=== PATIENT | male | born 1965 | race African-American/Black ===

== ENCOUNTER → 2017-07-25 | Day surgery (SDC) | payer OTHER ==
[~2017-07-25] MED LIST: LIDOCAINE 1% PF 2 ML VIAL. ID; LIDOCAINE 2% PF Vial for OR 5 ML VIAL.; MIDAZOLAM HCL/PF 2 MG/2 ML VIAL. IV; PROPOFOL 40 ML IV; fentaNYL PF VIAL 100 MCG/2 ML VIAL IV
[2017-07-25] MEDS: IV RINGERS,LACTATED 1000ML 1,000 ML IV (09:48)
== END | disposition home or self-care (01) ==
LOC: SURG 09:10
DX: Z12.11 Encounter for screening for malignant neoplasm of colon (principal); I10 Essential (primary) hypertension; Z83.3 Family history of diabetes mellitus; Z82.3 Family history of stroke; Z82.49 Family history of ischemic heart disease and other diseases of the circulatory system; K57.30 Diverticulosis of large intestine without perforation or abscess without bleeding; K29.51 Unspecified chronic gastritis with bleeding
CPT/HCPCS: 43235; J2704

== ENCOUNTER → 2017-08-22 | Outpatient (CLI) | payer OTHER | END | disposition home or self-care (01) | LOC: US 07:49 | DX: K76.0 Fatty (change of) liver, not elsewhere classified (principal) | CPT/HCPCS: 76705 ==

== ENCOUNTER 2018-04-25 11:48 | Inpatient (IN) | payer OTHER ==
[~2018-04-25] VITALS: Ht 177.8 cm; Wt 108.9 kg
[~2018-04-25 11:48] MED LIST changes: +AMLO5TAB7 PO; -LIDOCAINE 1% PF 2 ML VIAL. ID; -LIDOCAINE 2% PF Vial for OR 5 ML VIAL.; -MIDAZOLAM HCL/PF 2 MG/2 ML VIAL. IV; -PROPOFOL 40 ML IV; -fentaNYL PF VIAL 100 MCG/2 ML VIAL IV
[2018-04-25] MEDS ORDERED: ONDANSETRON PF 4 MG/2 ML VIAL. IV ONE (12:15)
[2018-04-25] MEDS ORDERED: IBUPROFEN 400 MG TABLET. PO ONE (12:15)
[2018-04-25] MEDS ORDERED: IV NORMAL SALINE 1000ML BAG 1,000 ML IV ONE ×2 (12:15→12:45)
[2018-04-25 12:34] LABS: BASO # 0.1 x10^3/uL (0.0-0.2); BASO % 1 % (0-3); EOS % 0 % (0-3); HEMATOCRIT 42.7 % (39.0-53.0); HEMOGLOBIN 14.8 g/dL (13.0-17.5); LYMPH # 0.8 x10^3/uL (1.0-4.8); LYMPH % 11 % (24-48); MEAN CORPUSCULAR HEMOGLOBIN 31 pg (25-35); MEAN CORPUSCULAR HGB CONC 35 g/dL (31-37); MEAN CORPUSCULAR VOLUME 88 fL (79-100); MONO # 0.4 x10^3/uL (0.0-1.1); MONO % 5 % (0-9); NEUT # 6.2 x10^3uL (1.8-7.7); NEUT % 83 % (31-73); PLATELET COUNT 150 x10^3/uL (140-400); RED BLOOD COUNT 4.83 x10^6/uL (4.30-5.70); RED CELL DISTRIBUTION WIDTH 13.6 % (11.5-14.5); WHITE BLOOD COUNT 7.4 x10^3/uL (4.0-11.0)
--- NOTE | 2018-04-25 12:44 | PHYS DOC ---
Past Medical History Past Medical History: Hypertension Past Surgical History: No Surgical History Alcohol Use: None Drug Use: None Adult General Chief Complaint Chief Complaint: WEAKNESS/GENERALIZED HPI HPI Patient is a 53 year old male who presents with cough, body aches, fever, headache, nausea since Friday. Patient states he is not taking any medications today and he rates his pain a 10 out of 10 generalized. Patient denies any diarrhea or vomiting chest pain or shortness of air. Patient states his only history is hypertension of which he didn't take his medication because of his symptoms. Patient's blood pressure is 141/84. 100% on room air, 16 respirations , 101 heart rate, 103.2 fever. Review of Systems Review of Systems Constitutional: fever or chills [] Eyes: Denies change in visual acuity, redness, or eye pain [] HENT: Denies nasal congestion or sore throat [] Respiratory: cough. Denies shortness of breath [] Cardiovascular: No additional information not addressed in HPI [] GI: Denies abdominal pain, nausea, vomiting, bloody stools or diarrhea [] : Denies dysuria or hematuria [] Musculoskeletal: Body aches generalized. Denies back pain or joint pain [] Integument: Denies rash or skin lesions [] Neurologic: headache, denies focal weakness or sensory changes [] All other systems were reviewed and found to be within normal limits, except as documented in this note. Current Medications Current Medications Current Medications Medications (Trade) Dose Ordered Sig/Nilo Start Time Stop Time Status Last Admin Dose Admin Acetaminophen (Tylenol) 650 mg PRN Q4HRS PRN 04/25/18 14:30 04/26/18 14:29 UNV Albuterol/ Ipratropium (Duoneb) 3 ml RTQID 04/25/18 16:00 04/26/18 15:59 UNV Azithromycin 250 ml @ 250 mls/hr 1X ONCE 04/25/18 14:30 04/25/18 15:29 Ceftriaxone Sodium 50 ml @ 100 mls/hr 1X ONCE 04/25/18 14:30 04/25/18 14:59 UNV Ibuprofen (Motrin) 800 mg 1X ONCE 04/25/18 12:15 04/25/18 12:16 DC 04/25/18 12:31 800 MG Ondansetron HCl (Zofran) 4 mg PRN Q8HRS PRN 04/25/18 14:30 04/26/18 14:29 Sodium Chloride 1,000 ml @ 1,000 mls/hr 1X ONCE 04/25/18 12:45 04/25/18 13:44 DC 04/25/18 12:45 1,000 MLS/HR Allergies Allergies Allergies Coded Allergies Type Severity Reaction Last Updated Verified No Known Drug Allergies 07/25/17 No Physical Exam Physical Exam Constitutional: Well developed, well nourished, no acute distress, non-toxic appearance. [] HENT: Normocephalic, atraumatic, bilateral external ears normal, oropharynx moist, no oral exudates, nose normal. [] Eyes: PERRLA, EOMI, conjunctiva normal, no discharge. [] Neck: Normal range of motion, no tenderness, supple, no stridor. [] Cardiovascular:Heart rate regular rhythm, no murmur [] Lungs & Thorax: Bilateral breath sounds clear to auscultation [] Abdomen: Bowel sounds normal, soft, no tenderness, no masses, no pulsatile masses. [] Skin: Warm, dry, no erythema, no rash. [] Back: No tenderness, no CVA tenderness. [] Extremities: No tenderness, no cyanosis, no clubbing, ROM intact, no edema. [] Neurologic: Alert and oriented X 3, normal motor function, normal sensory function, no focal deficits noted. [] Psychologic: Affect normal, judgement normal, mood normal. [] Current Patient Data Vital Signs Vital Signs Date Time Temp Pulse Resp B/P (MAP) Pulse Ox O2 Delivery O2 Flow Rate FiO2 04/25/18 12:08 103.2 101 16 141/84 (103) 100 Room Air 103.2 Lab Values Laboratory Tests Test 04/25/18 12:26 04/25/18 12:34 04/25/18 13:36 White Blood Count 7.4 x10^3/uL (4.0-11.0) Red Blood Count 4.83 x10^6/uL (4.30-5.70) Hemoglobin 14.8 g/dL (13.0-17.5) Hematocrit 42.7 % (39.0-53.0) Mean Corpuscular Volume 88 fL (79-100) Mean Corpuscular Hemoglobin 31 pg (25-35) Mean Corpuscular Hemoglobin Concent 35 g/dL (31-37) Red Cell Distribution Width 13.6 % (11.5-14.5) Platelet Count 150 x10^3/uL (140-400) Neutrophils (%) (Auto) 83 % (31-73) H Lymphocytes (%) (Auto) 11 % (24-48) L Monocytes (%) (Auto) 5 % (0-9) Eosinophils (%) (Auto) 0 % (0-3) Basophils (%) (Auto) 1 % (0-3) Neutrophils # (Auto) 6.2 x10^3uL (1.8-7.7) Lymphocytes # (Auto) 0.8 x10^3/uL (1.0-4.8) L Monocytes # (Auto) 0.4 x10^3/uL (0.0-1.1) Eosinophils # (Auto) 0.0 x10^3/uL (0.0-0.7) Basophils # (Auto) 0.1 x10^3/uL (0.0-0.2) Platelet Estimate Adequate (ADEQUATE) Giant Platelets Present Sodium Level 135 mmol/L (136-145) L Potassium Level 3.6 mmol/L (3.5-5.1) Chloride Level 98 mmol/L (98-107) Carbon Dioxide Level 24 mmol/L (21-32) Anion Gap 13 (6-14) Blood Urea Nitrogen 18 mg/dL (8-26) Creatinine 1.8 mg/dL (0.7-1.3) H Estimated GFR (Cockcroft-Gault) 47.8 Glucose Level 160 mg/dL (70-99) H Calcium Level 9.2 mg/dL (8.5-10.1) Influenza Type A Antigen Negative (NEGATIVE) Influenza Type B Antigen Negative (NEGATIVE) Urine Collection Type Unknown Urine Color Senait Urine Clarity Clear Urine pH 6.0 Urine Specific [place] >=1.030 Urine Protein 100 mg/dL (NEG-TRACE) Urine Glucose (UA) Negative mg/dL (NEG) Urine Ketones (Stick) Trace mg/dL (NEG) Urine Blood Negative (NEG) Urine Nitrite Negative (NEG) Urine Bilirubin Small (NEG) Urine Urobilinogen Dipstick 1.0 mg/dL (0.2 mg/dL) Urine Leukocyte Esterase Negative (NEG) Urine RBC 0 /HPF (0-2) Urine WBC 1-4 /HPF (0-4) Urine Bacteria 0 /HPF (0-FEW) Urine Mucus Mod /LPF Laboratory Tests 04/25/18 12:26 Laboratory Tests 04/25/18 12:26 EKG EKG [] Radiology/Procedures Radiology/Procedures Chest x-ray Impressions: [facility] [address] [place] [address] IMAGING REPORT Signed PATIENT: LISS DUNLAP ACCOUNT: [id number] : 1965 LOCATION: ER AGE: 53 SEX: M EXAM STATUS: REG ER ORD. PHYSICIAN: OSMANY PRESTON APRN REASON: cough, fever PROCEDURE: CHEST PA & LATERAL Chest, PA and Lateral: Technique: PA and lateral views of the chest were obtained. History: Fever, cough, headache. Comparison: None. Findings: The heart size grossly appears unremarkable. Mild bibasilar lung airspace opacities likely atelectasis or infiltrates. Mild degenerative changes identified in the thoracic spine IMPRESSION: Mild bibasilar lung airspace opacities likely atelectasis or infiltrates. Electronically signed by: Turner Guaman MD (04/25/2018 1:02 PM) [facility] DICTATED and SIGNED BY: TURNER GUAMAN MD DATE: 04/25/18 1257 Course & Med Decision Making Course & Med Decision Making Patient is a 53 year old male who presents with cough, body aches, fever, headache, nausea since Friday. Patient states he is not taking any medications today and he rates his pain a 10 out of 10 generalized. Patient denies any diarrhea or vomiting chest pain or shortness of air. Patient states his only history is hypertension of which he didn't take his medication because of his symptoms. Patient's blood pressure is 141/84. 100% on room air, 16 respirations , 101 heart rate, 103.2 fever. Skin is pink warm and dry. Alert and oriented. Abdomen is soft and nontender. Throat is pink without exudates. Bilateral tympanic syrup pearly white. PERRLA. Neurologically intact. Patient is febrile of which she is given ibuprofen. Patient is also given 2 normal saline boluses and some Zofran. Lungs are clear in all lobes. Heart rate regular without murmur. Patient has no swelling in extremities. Chest x-ray shows Mild bibasilar lung airspace opacities likely atelectasis or infiltrates. 1400: Patient's walking desats showed 89% on room air and heart rate jumped up to 115. When patient is just sitting in his room he is only satting at 92% on room air. Patient will be admitted for IV antibiotics. Blood cultures are drawn. I have talked into Dr. Lockwood consult pulmonary. Patient will be treated for Pneumonia with Azithromycin and Rocephin IV. Cultures done. Flu is negative. Blood work unremarkable. Dragon Disclaimer Ryzing Disclaimer This electronic medical record was generated, in whole or in part, using a voice recognition dictation system. Departure Departure Impression: Primary Impression: Community acquired pneumonia Disposition: ADMITTED INPATIENT Admitting Physician: Other Condition: STABLE Referrals: ANGELICA MANUEL MD (PCP) Patient Instructions: Pneumonia, Adult Additional Instructions: Call your doctor on Friday for a follow up appointment. Take medications as prescribed. Begin taking Ibuprofen or Tylenol for pain and fever. Drink plenty of fluids to avoid dehydration. Problem Qualifiers Primary Impression: Community acquired pneumonia Laterality: unspecified laterality Qualified Codes: J18.9 - Pneumonia, unspecified organism OSMANY PRESTON [employer] Apr 25, 2018 12:44
[2018-04-25 12:47] LABS: CALCIUM 9.2 mg/dL (8.5-10.1); CREATININE 1.8 mg/dL (0.7-1.3); GFR 47.8; POTASSIUM 3.6 mmol/L (3.5-5.1)
--- NOTE | 2018-04-25 13:05 | RAD ---
Chest, PA and Lateral: Technique: PA and lateral views of the chest were obtained. History: Fever, cough, headache. Comparison: None. Findings: The heart size grossly appears unremarkable. Mild bibasilar lung airspace opacities likely atelectasis or infiltrates. Mild degenerative changes identified in the thoracic spine IMPRESSION: Mild bibasilar lung airspace opacities likely atelectasis or infiltrates. Electronically signed by: Turner Guaman MD (04/25/2018 1:02 PM) [facility]
[2018-04-25 13:06] LABS: INFLUENZA A PATIENT NEGATIVE (NEGATIVE); INFLUENZA B PATIENT NEGATIVE (NEGATIVE)
[2018-04-25 13:11] LABS: PLT ESTIMATE ADEQUATE (ADEQUATE)
[2018-04-25] MEDS ORDERED: ONDA4TAB12 PO (13:21)
[2018-04-25] MEDS ORDERED: AZIT250T6 PO (13:21)
[2018-04-25] MEDS ORDERED: IBUP-1007 PO (13:21)
[2018-04-25 13:45] LABS: BILIRUBIN,URINE SMALL (NEG); CLARITY,URINE CLEAR; COLOR,URINE AMBER; NITRITE,URINE NEGATIVE (NEG); PROTEIN,URINE 100 mg/dL (NEG-TRACE)
[2018-04-25 14:04] LABS: RBC,URINE 0 /HPF (0-2)
[2018-04-25 14:05] LABS: BACTERIA,URINE 0 /HPF (0-FEW)
[2018-04-25] MEDS ORDERED: ONDANSETRON PF 4 MG/2 ML VIAL. IV PRN (14:30)
[2018-04-25] MEDS ORDERED: AZITHRMYCN 500MG IVPB FOR OMNI 250 ML IV ONE (14:30)
[2018-04-25] MEDS ORDERED: cefTRIAXone IV Push 1 GM VIAL. IVP ONE (14:45)
[2018-04-25] MEDS: IPRATRPIUM/ALBUTEROL 0.5/2.5MG 3 ML NEBU. NEB SCH ×3 (15:52→19:41)
[2018-04-25 19:12] VITALS: BP 172/101
[2018-04-25] MEDS ORDERED: AMLO10TA4 PO (20:06)
--- NOTE | 2018-04-25 21:56 | PDOC1 ---
History and Physical History of Present Illness History of Present Illness HPI in ED Patient is a 53 year old male who presents with cough, body aches, fever, headache, nausea since Friday. Patient states he is not taking any medications today and he rates his pain a 10 out of 10 generalized. Patient denies any diarrhea or vomiting chest pain or shortness of air. Patient states his only history is hypertension of which he didn't take his medication because of his symptoms. Patient's blood pressure is 141/84. 100% on room air, 16 respirations , 101 heart rate, 103.2 fever. On my exam he is in good spirits. NAD Fever has improved + cough requests to leave in am Current Problem List Problem List Problems Medical Problems: (1) Community acquired pneumonia Status: Acute Current Medications Current Medications Current Medications Medications (Trade) Dose Ordered Sig/Nilo Start Time Stop Time Status Last Admin Dose Admin Acetaminophen (Tylenol) 650 mg PRN Q4HRS PRN 04/25/18 14:30 04/26/18 14:29 Albuterol/ Ipratropium (Duoneb) 3 ml RTQID 04/25/18 16:00 04/26/18 15:59 04/25/18 19:41 3 ML Azithromycin 250 ml @ 250 mls/hr 1X ONCE 04/25/18 14:30 04/25/18 15:29 DC 04/25/18 14:41 250 MLS/HR Ceftriaxone Sodium (Rocephin) 1 gm 1X ONCE 04/25/18 14:45 04/25/18 14:46 DC 04/25/18 14:41 1 GM Ibuprofen (Motrin) 800 mg 1X ONCE 04/25/18 12:15 04/25/18 12:16 DC 04/25/18 12:31 800 MG Ondansetron HCl (Zofran) 4 mg PRN Q8HRS PRN 04/25/18 14:30 04/26/18 14:29 Sodium Chloride 1,000 ml @ 1,000 mls/hr 1X ONCE 04/25/18 12:45 04/25/18 13:44 DC 04/25/18 12:45 1,000 MLS/HR Allergies Allergies Allergies Coded Allergies Type Severity Reaction Last Updated Verified No Known Drug Allergies 07/25/17 No ROS Review of System CONSTITUTIONAL: No fever or chills EYES: No recent changes SKIN: No rash or itching CARDIOVASCULAR: No chest pain, syncope, palpitations, or edema RESPIRATORY: No SOB or cough GASTROINTESTINAL: No nausea, vomiting or abdominal pain NEUROLOGICAL: No headaches or weakness ENDOCRINE: No cold or heat intolerance GENITOURINARY: No urgency or frequency of urination MUSCULOSKELETAL: No back pain or joint pain LYMPHATICS: No enlarged lymph nodes PSYCHIATRIC: No anxiety or depression Physical Exam Physical Exam GEN.: No apparent distress. Alert and oriented. HEENT: Head is normocephalic, atraumatic NECK: Supple. LUNGS: Clear to auscultation. HEART: RRR, S1, S2 present. Peripheral pulses intact ABDOMEN: Soft, nontender. Positive bowel sounds. EXTREMITIES: Without any cyanosis. NEUROLOGIC: Normal speech, normal tone PSYCHIATRIC: Normal affect, normal mood. SKIN: No ulcerations Vitals Vitals Vital Signs Date Time Temp Pulse Resp B/P (MAP) Pulse Ox O2 Delivery O2 Flow Rate FiO2 04/25/18 20:00 Room Air 04/25/18 19:42 94 04/25/18 19:12 97.5 94 18 172/101 (124) 97.5 Labs Labs Laboratory Tests Test 04/25/18 12:26 04/25/18 12:34 04/25/18 13:36 White Blood Count 7.4 x10^3/uL (4.0-11.0) Red Blood Count 4.83 x10^6/uL (4.30-5.70) Hemoglobin 14.8 g/dL (13.0-17.5) Hematocrit 42.7 % (39.0-53.0) Mean Corpuscular Volume 88 fL (79-100) Mean Corpuscular Hemoglobin 31 pg (25-35) Mean Corpuscular Hemoglobin Concent 35 g/dL (31-37) Red Cell Distribution Width 13.6 % (11.5-14.5) Platelet Count 150 x10^3/uL (140-400) Neutrophils (%) (Auto) 83 % (31-73) Lymphocytes (%) (Auto) 11 % (24-48) Monocytes (%) (Auto) 5 % (0-9) Eosinophils (%) (Auto) 0 % (0-3) Basophils (%) (Auto) 1 % (0-3) Neutrophils # (Auto) 6.2 x10^3uL (1.8-7.7) Lymphocytes # (Auto) 0.8 x10^3/uL (1.0-4.8) Monocytes # (Auto) 0.4 x10^3/uL (0.0-1.1) Eosinophils # (Auto) 0.0 x10^3/uL (0.0-0.7) Basophils # (Auto) 0.1 x10^3/uL (0.0-0.2) Platelet Estimate Adequate (ADEQUATE) Giant Platelets Present Sodium Level 135 mmol/L (136-145) Potassium Level 3.6 mmol/L (3.5-5.1) Chloride Level 98 mmol/L (98-107) Carbon Dioxide Level 24 mmol/L (21-32) Anion Gap 13 (6-14) Blood Urea Nitrogen 18 mg/dL (8-26) Creatinine 1.8 mg/dL (0.7-1.3) Estimated GFR (Cockcroft-Gault) 47.8 Glucose Level 160 mg/dL (70-99) Calcium Level 9.2 mg/dL (8.5-10.1) Influenza Type A Antigen Negative (NEGATIVE) Influenza Type B Antigen Negative (NEGATIVE) Urine Collection Type Unknown Urine Color Senait Urine Clarity Clear Urine pH 6.0 Urine Specific [place] >=1.030 Urine Protein 100 mg/dL (NEG-TRACE) Urine Glucose (UA) Negative mg/dL (NEG) Urine Ketones (Stick) Trace mg/dL (NEG) Urine Blood Negative (NEG) Urine Nitrite Negative (NEG) Urine Bilirubin Small (NEG) Urine Urobilinogen Dipstick 1.0 mg/dL (0.2 mg/dL) Urine Leukocyte Esterase Negative (NEG) Urine RBC 0 /HPF (0-2) Urine WBC 1-4 /HPF (0-4) Urine Bacteria 0 /HPF (0-FEW) Urine Mucus Mod /LPF Laboratory Tests Test 04/25/18 12:26 04/25/18 12:34 04/25/18 13:36 White Blood Count 7.4 x10^3/uL (4.0-11.0) Red Blood Count 4.83 x10^6/uL (4.30-5.70) Hemoglobin 14.8 g/dL (13.0-17.5) Hematocrit 42.7 % (39.0-53.0) Mean Corpuscular Volume 88 fL (79-100) Mean Corpuscular Hemoglobin 31 pg (25-35) Mean Corpuscular Hemoglobin Concent 35 g/dL (31-37) Red Cell Distribution Width 13.6 % (11.5-14.5) Platelet Count 150 x10^3/uL (140-400) Neutrophils (%) (Auto) 83 % (31-73) Lymphocytes (%) (Auto) 11 % (24-48) Monocytes (%) (Auto) 5 % (0-9) Eosinophils (%) (Auto) 0 % (0-3) Basophils (%) (Auto) 1 % (0-3) Neutrophils # (Auto) 6.2 x10^3uL (1.8-7.7) Lymphocytes # (Auto) 0.8 x10^3/uL (1.0-4.8) Monocytes # (Auto) 0.4 x10^3/uL (0.0-1.1) Eosinophils # (Auto) 0.0 x10^3/uL (0.0-0.7) Basophils # (Auto) 0.1 x10^3/uL (0.0-0.2) Platelet Estimate Adequate (ADEQUATE) Giant Platelets Present Sodium Level 135 mmol/L (136-145) Potassium Level 3.6 mmol/L (3.5-5.1) Chloride Level 98 mmol/L (98-107) Carbon Dioxide Level 24 mmol/L (21-32) Anion Gap 13 (6-14) Blood Urea Nitrogen 18 mg/dL (8-26) Creatinine 1.8 mg/dL (0.7-1.3) Estimated GFR (Cockcroft-Gault) 47.8 Glucose Level 160 mg/dL (70-99) Calcium Level 9.2 mg/dL (8.5-10.1) Influenza Type A Antigen Negative (NEGATIVE) Influenza Type B Antigen Negative (NEGATIVE) Urine Collection Type Unknown Urine Color Senait Urine Clarity Clear Urine pH 6.0 Urine Specific [place] >=1.030 Urine Protein 100 mg/dL (NEG-TRACE) Urine Glucose (UA) Negative mg/dL (NEG) Urine Ketones (Stick) Trace mg/dL (NEG) Urine Blood Negative (NEG) Urine Nitrite Negative (NEG) Urine Bilirubin Small (NEG) Urine Urobilinogen Dipstick 1.0 mg/dL (0.2 mg/dL) Urine Leukocyte Esterase Negative (NEG) Urine RBC 0 /HPF (0-2) Urine WBC 1-4 /HPF (0-4) Urine Bacteria 0 /HPF (0-FEW) Urine Mucus Mod /LPF VTE Prophylaxis Ordered VTE Prophylaxis Devices: No VTE Pharmacological Prophylaxi: No Assessment/Plan Assessment/Plan Ceftriaxone/Azithromycin CT chest DREW SOTO MD Apr 25, 2018 21:56
[2018-04-25 23:24] VITALS: BP 144/98
[2018-04-25] MEDS: ACETAMINOPHEN 325 MG TABLET. PO PRN (23:56)
[2018-04-25] MEDS: IV NORMAL SALINE 1000ML BAG 1,000 ML IV SCH (23:57)
--- NOTE | 2018-04-26 01:57 | RAD ---
INDICATION: cp, soa, pna, no priors COMPARISON: Chest x-ray from one day prior TECHNIQUE: Axial CT images obtained through the chest without contrast. One or more of the following individualized dose reduction techniques were utilized for this examination: 1. Automated exposure control; 2. Adjustment of the mA and/or kV according to patient size; 3. Use of iterative reconstruction technique. FINDINGS: Dense opacity within the right lung right lower lobe with some groundglass component as well. Partially visualized liver appears low attenuation. Nonspecific but can be seen with fatty infiltration. Small pleural effusions. Degenerative changes spine. Small amount of fluid in the anterior mediastinum. Prominent precarinal lymph node measuring up to approximately 13 mm short axis. IMPRESSION: 1. Dense opacity within the right lung. Could be secondary to pneumonia but would obtain a follow-up to ensure resolution to exclude neoplastic causes. There is some prominent mediastinal lymph nodes which could be reactive in nature but can be followed as well. Electronically signed by: Jerel Velarde MD (04/26/2018 1:54 AM) [facility]
--- NOTE | 2018-04-26 02:23 | RAD ---
Indication: Dyspnea cough pneumonia vs PE 31.2mci 133XE Gas 5.5mci 99mTc MAA Technique: Static images are obtained of both lungs following inhalation of 31 mCi of 99 M technetium DTPA and again following IV administration of 5.5 mCi of 99 M technetium MAA. Comparison: CT chest same day Findings: No definite mismatched defects that are worse on the perfusion when compared to the ventilation images. Triple matched defect right lower lung Impression: 1. Triple matched defect in the right lower lung which corresponds with intermediate probability. Electronically signed by: Jerel Velarde MD (04/26/2018 2:19 AM) [facility]
[2018-04-26] MEDS ORDERED: ALBUTEROL SULFATE 2.5 MG/3 ML NEBU. NEB PRN (03:00)
[2018-04-26 03:46] VITALS: BP 145/91
[2018-04-26 05:48] LABS: BASO % 0 % (0-3); EOS % 0 % (0-3); HEMATOCRIT 38.5 % (39.0-53.0); LYMPH # 1.1 x10^3/uL (1.0-4.8); LYMPH % 18 % (24-48); MEAN CORPUSCULAR HEMOGLOBIN 30 pg (25-35); MEAN CORPUSCULAR HGB CONC 34 g/dL (31-37); MEAN CORPUSCULAR VOLUME 89 fL (79-100); MONO # 0.5 x10^3/uL (0.0-1.1); MONO % 8 % (0-9); NEUT # 4.7 x10^3uL (1.8-7.7); NEUT % 74 % (31-73); PLATELET COUNT 142 x10^3/uL (140-400); RED BLOOD COUNT 4.33 x10^6/uL (4.30-5.70); RED CELL DISTRIBUTION WIDTH 13.6 % (11.5-14.5); WHITE BLOOD COUNT 6.3 x10^3/uL (4.0-11.0)
[2018-04-26 05:53] LABS: ALBUMIN 2.6 g/dL (3.4-5.0); ALBUMIN/GLOBULIN RATIO 0.6 (1.0-1.7); CALCIUM 8.7 mg/dL (8.5-10.1); CREATININE 1.6 mg/dL (0.7-1.3); GFR 54.8; POTASSIUM 3.6 mmol/L (3.5-5.1); TOTAL BILIRUBIN 0.4 mg/dL (0.2-1.0); TOTAL PROTEIN 7.3 g/dL (6.4-8.2)
[2018-04-26] MEDS: IBUPROFEN 200 MG TABLET. PO PRN ×2 (06:32→18:28)
[2018-04-26] MEDS: AZITHROMYCIN 500 MG in IV NORMAL SALINE 250ML 250 ML IV SCH (06:32)
[2018-04-26 07:00] VITALS: BP 151/67
[2018-04-26] MEDS: IPRATRPIUM/ALBUTEROL 0.5/2.5MG 3 ML NEBU. NEB SCH ×2 (07:47→11:40)
[2018-04-26] MEDS ORDERED: cefTRIAXone IV Push 1 GM VIAL. IVP ONE (08:00)
--- NOTE | 2018-04-26 08:25 | RAD ---
Examination: Lower Extremity Venous Doppler Ultrasound History: Bilateral leg pain Comparison: None Procedure: Haynes scale, color flow 2D and spectal waveform analysis images are obtained with and without compression in the area of the common femoral vein, superficial femoral vein - femoral vein junction, main femoral vein (superficial femoral vein) and popliteal vein. Veins of the proximal calf are also imaged. Findings: There is normal duplex flow, color flow and compressibility of all visualized vein segments. No evidence of deep venous thrombus is present. Impression: No evidence of DVT in the visualized bilateral lower extremity venous system. Electronically signed by: Turner Guaman MD (04/26/2018 8:21 AM) [facility]
[2018-04-26] MEDS: amLODIPine BESYLATE 10 MG TABLET PO SCH (09:00)
[2018-04-26] MEDS: ACETAMINOPHEN 325 MG TABLET. PO PRN ×2 (09:02→23:25)
[2018-04-26 10:19] VITALS: BP 143/93
[2018-04-26] MEDS: cefTRIAXone IV Push 1 GM VIAL. IVP SCH (11:24)
--- NOTE | 2018-04-26 11:46 | CONS ---
DATE OF CONSULTATION: ATTENDING PHYSICIAN: Dr. Lockwood. REASON FOR CONSULTATION: Pneumonia. HISTORY OF PRESENT ILLNESS: The patient is a 53-year-old who presented to the hospital with complaint of a cough for the last 3-4 days along with subjective fever. He also had pain in the right side of the chest as well and body aches and headaches. No nausea or vomiting. The patient was seen in the Emergency Room. He initially had a chest x-ray, which revealed a right lower lobe consolidation/infiltrates. However, a VQ scan was also ordered through the ER, which was reviewed by me and shows multiple matched defects involving the right lower chest. No mismatched defects were seen. He underwent noncontrast CT chest, which was also reviewed by me. There was dense consolidation noted in the right lower lobe. No definite mass was seen. There was mild precarinal adenopathy. He also has venous Dopplers of lower extremities and they were negative for DVT. I have been asked to see him for further evaluation, he has been initiated on antibiotics. PAST MEDICAL HISTORY: No history of significant tobacco use or asthma. PAST SURGICAL HISTORY: No recent surgeries. ALLERGIES: None. CURRENT MEDICATIONS: Reviewed as listed in the MRAD including azithromycin and Rocephin. REVIEW OF SYSTEMS: A 12-point system obtained. Pertinent positives discussed in my history of present illness, otherwise noncontributory. All systems that were negative were reviewed as well. SOCIAL HISTORY: Nonsmoker, nonalcoholic. Denies any significant drug use. 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 FAMILY HISTORY: Noncontributory to lungs. PHYSICAL EXAMINATION: VITAL SIGNS: His T-max was 102.7. Blood pressure 143/93. Pulse ox 89% on room air. HEENT: Sclerae nonicteric. NECK: Supple. LUNGS: Diminished breath sounds right base. CARDIOVASCULAR: Regular rate and rhythm. ABDOMEN: Soft, obese. EXTREMITIES: With trace edema. LABORATORY DATA: Reviewed. White cell count 7.4, hemoglobin 14.8, platelets are 150. BUN and creatinine 18 and 1.8. Influenza screen negative. IMPRESSION: 1. Acute hypoxic respiratory failure with high grade fever. This is secondary to a marked consolidation involving right lower lobe, suspect gram-negative pneumonia. 2. No significant history of tobacco use. 3. High grade fever secondary to pneumonia. 4. Abnormal V/Q scan, which was reviewed by me and shows multiple matched perfusion abnormalities in the right lower lobe consistent with pneumonia. No mismatched defects were seen. 5. Venous Dopplers were negative. RECOMMENDATIONS: 1. Continue with present oxygen at 2 liters. 2. Keep saturation 92 and above. 3. Broad-spectrum antibiotics. 4. Consider Infectious Disease consult. 5. Follow blood cultures and sputum cultures. 6. Nebulizer treatments. 7. Monitor chest x-rays. 8. Monitor the fever pattern. 9. Anticipate hospitalization 48-72 hours at least. Discussed with RN. ANNIE KAUR MD DR: [place]/haylee JOB#: [id number] / [id number]
[2018-04-26] MEDS: IV NORMAL SALINE 1000ML BAG 1,000 ML IV SCH (13:37)
[2018-04-26 14:37] VITALS: BP 156/99
--- NOTE | 2018-04-26 14:56 | PDOC ---
PROGRESS NOTES History of Present Illness History of Present Illness Pt febrile overnight He also c/t feel ill Influenza negative Legionella/Strep pending Ceftraxone/Azithromycin day 2 v/q scan 06/27 desauration --> int prob LE duplex with no clots - no further intervention Plan CAP pna tx if c/t spike temp --> ID c/s await urine studies needs f/u outpt CT scan to r/o malignancy post tx of pna f/u HBAC1 given HTN and kidney disease IVF for ? JATIN Vitals Vitals Vital Signs Date Time Temp Pulse Resp B/P (MAP) Pulse Ox O2 Delivery O2 Flow Rate FiO2 04/26/18 14:37 101.4 101 20 156/99 (118) 88 Room Air 101.4 Labs LABS Laboratory Tests Test 04/26/18 04:45 White Blood Count 6.3 x10^3/uL (4.0-11.0) Red Blood Count 4.33 x10^6/uL (4.30-5.70) Hemoglobin 13.0 g/dL (13.0-17.5) Hematocrit 38.5 % (39.0-53.0) Mean Corpuscular Volume 89 fL (79-100) Mean Corpuscular Hemoglobin 30 pg (25-35) Mean Corpuscular Hemoglobin Concent 34 g/dL (31-37) Red Cell Distribution Width 13.6 % (11.5-14.5) Platelet Count 142 x10^3/uL (140-400) Neutrophils (%) (Auto) 74 % (31-73) Lymphocytes (%) (Auto) 18 % (24-48) Monocytes (%) (Auto) 8 % (0-9) Eosinophils (%) (Auto) 0 % (0-3) Basophils (%) (Auto) 0 % (0-3) Neutrophils # (Auto) 4.7 x10^3uL (1.8-7.7) Lymphocytes # (Auto) 1.1 x10^3/uL (1.0-4.8) Monocytes # (Auto) 0.5 x10^3/uL (0.0-1.1) Eosinophils # (Auto) 0.0 x10^3/uL (0.0-0.7) Basophils # (Auto) 0.0 x10^3/uL (0.0-0.2) Sodium Level 137 mmol/L (136-145) Potassium Level 3.6 mmol/L (3.5-5.1) Chloride Level 101 mmol/L (98-107) Carbon Dioxide Level 26 mmol/L (21-32) Anion Gap 10 (6-14) Blood Urea Nitrogen 16 mg/dL (8-26) Creatinine 1.6 mg/dL (0.7-1.3) Estimated GFR (Cockcroft-Gault) 54.8 BUN/Creatinine Ratio 10 (6-20) Glucose Level 165 mg/dL (70-99) Calcium Level 8.7 mg/dL (8.5-10.1) Total Bilirubin 0.4 mg/dL (0.2-1.0) Aspartate Amino Transf (AST/SGOT) 77 U/L (15-37) Alanine Aminotransferase (ALT/SGPT) 78 U/L (16-63) Alkaline Phosphatase 69 U/L (46-116) Total Protein 7.3 g/dL (6.4-8.2) Albumin 2.6 g/dL (3.4-5.0) Albumin/Globulin Ratio 0.6 (1.0-1.7) Assessment and Plan Assessmemt and Plan Problems Medical Problems: (1) Community acquired pneumonia Status: Acute Comment Review of Relevant I have reviewed the following items erick (where applicable) has been applied. Labs Laboratory Tests Test 04/25/18 12:26 04/25/18 12:34 04/25/18 13:36 04/26/18 04:45 White Blood Count 7.4 x10^3/uL (4.0-11.0) 6.3 x10^3/uL (4.0-11.0) Red Blood Count 4.83 x10^6/uL (4.30-5.70) 4.33 x10^6/uL (4.30-5.70) Hemoglobin 14.8 g/dL (13.0-17.5) 13.0 g/dL (13.0-17.5) Hematocrit 42.7 % (39.0-53.0) 38.5 % (39.0-53.0) Mean Corpuscular Volume 88 fL (79-100) 89 fL (79-100) Mean Corpuscular Hemoglobin 31 pg (25-35) 30 pg (25-35) Mean Corpuscular Hemoglobin Concent 35 g/dL (31-37) 34 g/dL (31-37) Red Cell Distribution Width 13.6 % (11.5-14.5) 13.6 % (11.5-14.5) Platelet Count 150 x10^3/uL (140-400) 142 x10^3/uL (140-400) Neutrophils (%) (Auto) 83 % (31-73) 74 % (31-73) Lymphocytes (%) (Auto) 11 % (24-48) 18 % (24-48) Monocytes (%) (Auto) 5 % (0-9) 8 % (0-9) Eosinophils (%) (Auto) 0 % (0-3) 0 % (0-3) Basophils (%) (Auto) 1 % (0-3) 0 % (0-3) Neutrophils # (Auto) 6.2 x10^3uL (1.8-7.7) 4.7 x10^3uL (1.8-7.7) Lymphocytes # (Auto) 0.8 x10^3/uL (1.0-4.8) 1.1 x10^3/uL (1.0-4.8) Monocytes # (Auto) 0.4 x10^3/uL (0.0-1.1) 0.5 x10^3/uL (0.0-1.1) Eosinophils # (Auto) 0.0 x10^3/uL (0.0-0.7) 0.0 x10^3/uL (0.0-0.7) Basophils # (Auto) 0.1 x10^3/uL (0.0-0.2) 0.0 x10^3/uL (0.0-0.2) Platelet Estimate Adequate (ADEQUATE) Giant Platelets Present Sodium Level 135 mmol/L (136-145) 137 mmol/L (136-145) Potassium Level 3.6 mmol/L (3.5-5.1) 3.6 mmol/L (3.5-5.1) Chloride Level 98 mmol/L (98-107) 101 mmol/L (98-107) Carbon Dioxide Level 24 mmol/L (21-32) 26 mmol/L (21-32) Anion Gap 13 (6-14) 10 (6-14) Blood Urea Nitrogen 18 mg/dL (8-26) 16 mg/dL (8-26) Creatinine 1.8 mg/dL (0.7-1.3) 1.6 mg/dL (0.7-1.3) Estimated GFR (Cockcroft-Gault) 47.8 54.8 Glucose Level 160 mg/dL (70-99) 165 mg/dL (70-99) Calcium Level 9.2 mg/dL (8.5-10.1) 8.7 mg/dL (8.5-10.1) Influenza Type A Antigen Negative (NEGATIVE) Influenza Type B Antigen Negative (NEGATIVE) Urine Collection Type Unknown Urine Color Senait Urine Clarity Clear Urine pH 6.0 Urine Specific [place] >=1.030 Urine Protein 100 mg/dL (NEG-TRACE) Urine Glucose (UA) Negative mg/dL (NEG) Urine Ketones (Stick) Trace mg/dL (NEG) Urine Blood Negative (NEG) Urine Nitrite Negative (NEG) Urine Bilirubin Small (NEG) Urine Urobilinogen Dipstick 1.0 mg/dL (0.2 mg/dL) Urine Leukocyte Esterase Negative (NEG) Urine RBC 0 /HPF (0-2) Urine WBC 1-4 /HPF (0-4) Urine Bacteria 0 /HPF (0-FEW) Urine Mucus Mod /LPF BUN/Creatinine Ratio 10 (6-20) Total Bilirubin 0.4 mg/dL (0.2-1.0) Aspartate Amino Transf (AST/SGOT) 77 U/L (15-37) Alanine Aminotransferase (ALT/SGPT) 78 U/L (16-63) Alkaline Phosphatase 69 U/L (46-116) Total Protein 7.3 g/dL (6.4-8.2) Albumin 2.6 g/dL (3.4-5.0) Albumin/Globulin Ratio 0.6 (1.0-1.7) Laboratory Tests Test 04/26/18 04:45 White Blood Count 6.3 x10^3/uL (4.0-11.0) Red Blood Count 4.33 x10^6/uL (4.30-5.70) Hemoglobin 13.0 g/dL (13.0-17.5) Hematocrit 38.5 % (39.0-53.0) Mean Corpuscular Volume 89 fL (79-100) Mean Corpuscular Hemoglobin 30 pg (25-35) Mean Corpuscular Hemoglobin Concent 34 g/dL (31-37) Red Cell Distribution Width 13.6 % (11.5-14.5) Platelet Count 142 x10^3/uL (140-400) Neutrophils (%) (Auto) 74 % (31-73) Lymphocytes (%) (Auto) 18 % (24-48) Monocytes (%) (Auto) 8 % (0-9) Eosinophils (%) (Auto) 0 % (0-3) Basophils (%) (Auto) 0 % (0-3) Neutrophils # (Auto) 4.7 x10^3uL (1.8-7.7) Lymphocytes # (Auto) 1.1 x10^3/uL (1.0-4.8) Monocytes # (Auto) 0.5 x10^3/uL (0.0-1.1) Eosinophils # (Auto) 0.0 x10^3/uL (0.0-0.7) Basophils # (Auto) 0.0 x10^3/uL (0.0-0.2) Sodium Level 137 mmol/L (136-145) Potassium Level 3.6 mmol/L (3.5-5.1) Chloride Level 101 mmol/L (98-107) Carbon Dioxide Level 26 mmol/L (21-32) Anion Gap 10 (6-14) Blood Urea Nitrogen 16 mg/dL (8-26) Creatinine 1.6 mg/dL (0.7-1.3) Estimated GFR (Cockcroft-Gault) 54.8 BUN/Creatinine Ratio 10 (6-20) Glucose Level 165 mg/dL (70-99) Calcium Level 8.7 mg/dL (8.5-10.1) Total Bilirubin 0.4 mg/dL (0.2-1.0) Aspartate Amino Transf (AST/SGOT) 77 U/L (15-37) Alanine Aminotransferase (ALT/SGPT) 78 U/L (16-63) Alkaline Phosphatase 69 U/L (46-116) Total Protein 7.3 g/dL (6.4-8.2) Albumin 2.6 g/dL (3.4-5.0) Albumin/Globulin Ratio 0.6 (1.0-1.7) Medications Current Medications Ibuprofen (Motrin) 800 mg 1X ONCE PO Last administered on 04/25/18at 12:31; Start 04/25/18 at 12:15; Stop 04/25/18 at 12:16; Status DC Sodium Chloride 1,000 ml @ 1,000 mls/hr 1X ONCE IV Last administered on at 12:15; Start 04/25/18 at 12:15; Stop 04/25/18 at 13:14; Status DC Ondansetron HCl (Zofran) 4 mg 1X ONCE IV Last administered on 04/25/18at 12:30 ; Start 04/25/18 at 12:15; Stop 04/25/18 at 12:16; Status DC Sodium Chloride 1,000 ml @ 1,000 mls/hr 1X ONCE IV Last administered on at 12:45; Start 04/25/18 at 12:45; Stop 04/25/18 at 13:44; Status DC Azithromycin 250 ml @ 250 mls/hr 1X ONCE IV Last administered on 04/25/18at 14 :41; Start 04/25/18 at 14:30; Stop 04/25/18 at 15:29; Status DC Ceftriaxone Sodium 50 ml @ 100 mls/hr 1X ONCE IV ; Start 04/25/18 at 14:30; Stop 04/25/18 at 14:59; Status UNV Ondansetron HCl (Zofran) 4 mg PRN Q8HRS PRN IV NAUSEA/VOMITING; Start 04/25/18 at 14:30; Stop 04/26/18 at 14:29; Status DC Acetaminophen (Tylenol) 650 mg PRN Q4HRS PRN PO FEVER Last administered on 04/26at 09:02; Start 04/25/18 at 14:30; Stop 04/26/18 at 14:29; Status DC Albuterol/ Ipratropium (Duoneb) 3 ml RTQID NEB Last administered on 04/26/18at 11:40; Start 04/25/18 at 16:00; Stop 04/26/18 at 15:59 Ceftriaxone Sodium (Rocephin) 1 gm 1X ONCE IVP Last administered on 04/25/18at 14:41; Start 04/25/18 at 14:45; Stop 04/25/18 at 14:46; Status DC Amlodipine Besylate (Norvasc) 10 mg DAILY PO Last administered on 04/26/18at 09: 00; Start 04/26/18 at 09:00 Azithromycin 500 mg/Sodium Chloride 250 ml @ 250 mls/hr Q24H IV Last administered on 04/26/18at 06:32; Start 04/26/18 at 09:00 Ceftriaxone Sodium 50 ml @ 100 mls/hr 1X ONCE IV ; Start 04/26/18 at 08:00; Stop 04/26/18 at 08:29; Status UNV Ceftriaxone Sodium (Rocephin) 1 gm ONCE ONCE IVP Last administered on at 06:32; Start 04/26/18 at 08:00; Stop 04/26/18 at 08:01; Status DC Sodium Chloride 1,000 ml @ 75 mls/hr [id number] IV Last administered on at 13:37; Start 04/26/18 at 00:00 Albuterol Sulfate (Ventolin Neb Soln) 2.5 mg PRN Q4HRS PRN NEB SHORTNESS OF BREATH Last administered on 04/26/18at 03:00; Start 04/26/18 at 03:00 Ibuprofen (Motrin) 600 mg PRN Q6HRS PRN PO INFLAMMATION Last administered on at 06:32; Start 04/26/18 at 06:15 Ceftriaxone Sodium (Rocephin) 1 gm Q24H IVP Last administered on 04/26/18at 11: 24; Start 04/26/18 at 11:00 Lactobacillus Rhamnosus (Culturelle) 1 cap BID PO ; Start 04/26/18 at 21:00 Active Scripts Active Reported Norvasc (Amlodipine Besylate) 10 Mg Tablet 10 Mg PO DAILY Vitals/I & O Vital Sign - Last 24 Hours 04/25/18 04/25/18 04/25/18 04/25/18 15:46 15:55 19:12 19:42 Temp 97.5 97.5 Pulse 94 Resp 18 B/P (MAP) 172/101 (124) Pulse Ox 95 95 94 O2 Delivery Room Air Room Air Room Air Room Air 04/25/18 04/25/18 04/26/18 04/26/18 20:00 23:24 03:02 03:46 Temp 102.3 99.6 102.3 99.6 Pulse 101 93 Resp 18 18 B/P (MAP) 144/98 (113) 145/91 (109) Pulse Ox 92 97 90 O2 Delivery Room Air Room Air Room Air Room Air 04/26/18 04/26/18 04/26/18 04/26/18 06:15 07:00 07:47 08:00 Temp 102.7 101.5 102.7 101.5 Pulse 101 Resp 20 B/P (MAP) 151/67 (95) Pulse Ox 92 92 O2 Delivery Room Air Room Air Room Air 04/26/18 04/26/18 04/26/18 04/26/18 09:00 10:19 11:40 14:37 Temp 98.1 101.4 98.1 101.4 Pulse 101 89 101 Resp 24 20 B/P (MAP) 151/67 143/93 (110) 156/99 (118) Pulse Ox 89 88 O2 Delivery Room Air Room Air Room Air Intake and Output 04/25/18 04/25/18 04/26/18 15:00 23:00 07:00 Intake Total 1000 ml 150 ml 2650 ml Balance 1000 ml 150 ml 2650 ml DREW SOTO MD Apr 26, 2018 14:56
[2018-04-26] MEDS ORDERED: IPRATRPIUM/ALBUTEROL 0.5/2.5MG 3 ML NEBU. NEB SCH (16:00)
[2018-04-26] MEDS: LEVALBUTEROL 1.25 MG/0.5 ML NEBU. NEB SCH (19:00)
[2018-04-26 19:12] VITALS: BP 163/95
[2018-04-26] MEDS: LINEZOLID 600 MG TABLET PO SCH (19:30)
[2018-04-26] MEDS: LACTOBACILLUS RHAMNOSUS GG 1 CAPSULE. PO SCH (19:30)
[2018-04-26 23:18] VITALS: BP 135/81
[2018-04-27] MEDS: IV NORMAL SALINE 1000ML BAG 1,000 ML IV SCH ×2 (02:40→15:56)
[2018-04-27 02:58] VITALS: BP 126/98
[2018-04-27] MEDS: IBUPROFEN 200 MG TABLET. PO PRN ×3 (06:51→22:51)
[2018-04-27 07:00] VITALS: BP 139/97
[2018-04-27] MEDS: LEVALBUTEROL 1.25 MG/0.5 ML NEBU. NEB SCH ×4 (07:25→20:00)
[2018-04-27] MEDS: ACETAMINOPHEN 325 MG TABLET. PO PRN ×2 (08:24→19:30)
--- NOTE | 2018-04-27 09:17 | PDOC ---
PULMONARY PROGRESS NOTES Subjective PT FEELS BETTER LESS SOA AND COUGH Vitals Vital Signs Date Time Temp Pulse Resp B/P (MAP) Pulse Ox O2 Delivery O2 Flow Rate FiO2 04/27/18 07:26 95 Room Air 04/27/18 07:00 98.6 79 20 139/97 (111) 2.0 98.6 ROS: No Nausea, No Chest Pain, No Abdominal Pain General: Alert Lungs: Crackles Cardiovascular: S1, S2 Abdomen: Soft, Non-tender Neuro Exam: Alert Extremities: No Edema Skin: Warm Labs Laboratory Tests Test 04/25/18 12:26 04/25/18 12:34 04/25/18 13:36 04/26/18 04:45 White Blood Count 7.4 x10^3/uL (4.0-11.0) 6.3 x10^3/uL (4.0-11.0) Red Blood Count 4.83 x10^6/uL (4.30-5.70) 4.33 x10^6/uL (4.30-5.70) Hemoglobin 14.8 g/dL (13.0-17.5) 13.0 g/dL (13.0-17.5) Hematocrit 42.7 % (39.0-53.0) 38.5 % (39.0-53.0) Mean Corpuscular Volume 88 fL (79-100) 89 fL (79-100) Mean Corpuscular Hemoglobin 31 pg (25-35) 30 pg (25-35) Mean Corpuscular Hemoglobin Concent 35 g/dL (31-37) 34 g/dL (31-37) Red Cell Distribution Width 13.6 % (11.5-14.5) 13.6 % (11.5-14.5) Platelet Count 150 x10^3/uL (140-400) 142 x10^3/uL (140-400) Neutrophils (%) (Auto) 83 % (31-73) 74 % (31-73) Lymphocytes (%) (Auto) 11 % (24-48) 18 % (24-48) Monocytes (%) (Auto) 5 % (0-9) 8 % (0-9) Eosinophils (%) (Auto) 0 % (0-3) 0 % (0-3) Basophils (%) (Auto) 1 % (0-3) 0 % (0-3) Neutrophils # (Auto) 6.2 x10^3uL (1.8-7.7) 4.7 x10^3uL (1.8-7.7) Lymphocytes # (Auto) 0.8 x10^3/uL (1.0-4.8) 1.1 x10^3/uL (1.0-4.8) Monocytes # (Auto) 0.4 x10^3/uL (0.0-1.1) 0.5 x10^3/uL (0.0-1.1) Eosinophils # (Auto) 0.0 x10^3/uL (0.0-0.7) 0.0 x10^3/uL (0.0-0.7) Basophils # (Auto) 0.1 x10^3/uL (0.0-0.2) 0.0 x10^3/uL (0.0-0.2) Platelet Estimate Adequate (ADEQUATE) Giant Platelets Present Sodium Level 135 mmol/L (136-145) 137 mmol/L (136-145) Potassium Level 3.6 mmol/L (3.5-5.1) 3.6 mmol/L (3.5-5.1) Chloride Level 98 mmol/L (98-107) 101 mmol/L (98-107) Carbon Dioxide Level 24 mmol/L (21-32) 26 mmol/L (21-32) Anion Gap 13 (6-14) 10 (6-14) Blood Urea Nitrogen 18 mg/dL (8-26) 16 mg/dL (8-26) Creatinine 1.8 mg/dL (0.7-1.3) 1.6 mg/dL (0.7-1.3) Estimated GFR (Cockcroft-Gault) 47.8 54.8 Glucose Level 160 mg/dL (70-99) 165 mg/dL (70-99) Calcium Level 9.2 mg/dL (8.5-10.1) 8.7 mg/dL (8.5-10.1) Influenza Type A Antigen Negative (NEGATIVE) Influenza Type B Antigen Negative (NEGATIVE) Urine Collection Type Unknown Urine Color Senait Urine Clarity Clear Urine pH 6.0 Urine Specific [place] >=1.030 Urine Protein 100 mg/dL (NEG-TRACE) Urine Glucose (UA) Negative mg/dL (NEG) Urine Ketones (Stick) Trace mg/dL (NEG) Urine Blood Negative (NEG) Urine Nitrite Negative (NEG) Urine Bilirubin Small (NEG) Urine Urobilinogen Dipstick 1.0 mg/dL (0.2 mg/dL) Urine Leukocyte Esterase Negative (NEG) Urine RBC 0 /HPF (0-2) Urine WBC 1-4 /HPF (0-4) Urine Bacteria 0 /HPF (0-FEW) Urine Mucus Mod /LPF BUN/Creatinine Ratio 10 (6-20) Hemoglobin A1c 6.0 % (4.8-5.6) Total Bilirubin 0.4 mg/dL (0.2-1.0) Aspartate Amino Transf (AST/SGOT) 77 U/L (15-37) Alanine Aminotransferase (ALT/SGPT) 78 U/L (16-63) Alkaline Phosphatase 69 U/L (46-116) Total Protein 7.3 g/dL (6.4-8.2) Albumin 2.6 g/dL (3.4-5.0) Albumin/Globulin Ratio 0.6 (1.0-1.7) Test 04/26/18 19:50 Lactic Acid Level 1.3 mmol/L (0.4-2.0) Laboratory Tests Test 04/26/18 19:50 Lactic Acid Level 1.3 mmol/L (0.4-2.0) Medications Active Scripts Medications Dose Route/Sig Max Daily Dose Days Date Category Norvasc (Amlodipine Besylate) 10 Mg Tablet 10 Mg PO DAILY 04/25/18 Reported Impression . IMPRESSION: 1. Acute hypoxic respiratory failure with high grade fever. This is secondary to a marked consolidation involving right lower lobe, suspect gram-negative pneumonia. 2. No significant history of tobacco use. 3. High grade fever secondary to pneumonia. 4. Abnormal V/Q scan, which was reviewed by me and shows multiple matched perfusion abnormalities in the right lower lobe consistent with pneumonia. No mismatched defects were seen. 5. Venous Dopplers were negative. Plan . CONTINUE THE SAME ANTIBX PER ID FOLLOW CULTURES KARIE DIXON MD Apr 27, 2018 09:17
[2018-04-27] MEDS: AZITHROMYCIN 500 MG in IV NORMAL SALINE 250ML 250 ML IV SCH (10:01)
[2018-04-27] MEDS: LACTOBACILLUS RHAMNOSUS GG 1 CAPSULE. PO SCH ×2 (10:02→20:31)
[2018-04-27] MEDS: amLODIPine BESYLATE 10 MG TABLET PO SCH (10:02)
[2018-04-27] MEDS: LINEZOLID 600 MG TABLET PO SCH (10:02)
[2018-04-27 11:00] VITALS: BP 124/91
[2018-04-27] MEDS: cefTRIAXone IV Push 1 GM VIAL. IVP SCH (11:27)
--- NOTE | 2018-04-27 12:16 | PDOC ---
Infectious Disease Note Vital Sign Vital Signs Vital Signs Date Time Temp Pulse Resp B/P (MAP) Pulse Ox O2 Delivery O2 Flow Rate FiO2 04/27/18 11:46 96 Nasal Cannula 2.0 04/27/18 10:02 79 139/97 04/27/18 07:00 98.6 20 98.6 Labs Lab Laboratory Tests Test 04/26/18 19:50 Lactic Acid Level 1.3 mmol/L (0.4-2.0) Objective Assessment CAP Fever Renal insufficiency Elevated liver function Plan Plan of Care Rocephicuba and kaushalithro d/c zyvox supportive care check cultures d/w sister and girlfriend ROYER MELVIN MD Apr 27, 2018 12:16
--- NOTE | 2018-04-27 14:37 | PDOC ---
PROGRESS NOTES Chief Complaint Chief Complaint CAP mekhi, vasomotor morbid obesity plan: fu with id, pulm on alana, ceftriaxone breath treatment ivf for now labs daily dvt ppx History of Present Illness History of Present Illness ROS: no fever, chills, sob or chest pain fever / still cough a lot dry cough Vitals Vitals Vital Signs Date Time Temp Pulse Resp B/P (MAP) Pulse Ox O2 Delivery O2 Flow Rate FiO2 04/27/18 11:46 96 Nasal Cannula 2.0 04/27/18 11:00 98.4 81 18 124/91 (102) 98.4 Physical Exam General: Alert, Oriented X3, Cooperative Heart: Regular rate, Normal S1, Normal S2 Lungs: Other (bl mild coarse bs, no wheezing. mild rales) Abdomen: Normal bowel sounds, Soft Extremities: No clubbing, No cyanosis Skin: No rashes Labs LABS Laboratory Tests Test 04/26/18 19:50 Lactic Acid Level 1.3 mmol/L (0.4-2.0) Assessment and Plan Assessmemt and Plan Problems Medical Problems: (1) Community acquired pneumonia Status: Acute Comment Review of Relevant I have reviewed the following items erick (where applicable) has been applied. Labs Laboratory Tests Test 04/26/18 04:45 04/26/18 19:50 White Blood Count 6.3 x10^3/uL (4.0-11.0) Red Blood Count 4.33 x10^6/uL (4.30-5.70) Hemoglobin 13.0 g/dL (13.0-17.5) Hematocrit 38.5 % (39.0-53.0) Mean Corpuscular Volume 89 fL (79-100) Mean Corpuscular Hemoglobin 30 pg (25-35) Mean Corpuscular Hemoglobin Concent 34 g/dL (31-37) Red Cell Distribution Width 13.6 % (11.5-14.5) Platelet Count 142 x10^3/uL (140-400) Neutrophils (%) (Auto) 74 % (31-73) Lymphocytes (%) (Auto) 18 % (24-48) Monocytes (%) (Auto) 8 % (0-9) Eosinophils (%) (Auto) 0 % (0-3) Basophils (%) (Auto) 0 % (0-3) Neutrophils # (Auto) 4.7 x10^3uL (1.8-7.7) Lymphocytes # (Auto) 1.1 x10^3/uL (1.0-4.8) Monocytes # (Auto) 0.5 x10^3/uL (0.0-1.1) Eosinophils # (Auto) 0.0 x10^3/uL (0.0-0.7) Basophils # (Auto) 0.0 x10^3/uL (0.0-0.2) Sodium Level 137 mmol/L (136-145) Potassium Level 3.6 mmol/L (3.5-5.1) Chloride Level 101 mmol/L (98-107) Carbon Dioxide Level 26 mmol/L (21-32) Anion Gap 10 (6-14) Blood Urea Nitrogen 16 mg/dL (8-26) Creatinine 1.6 mg/dL (0.7-1.3) Estimated GFR (Cockcroft-Gault) 54.8 BUN/Creatinine Ratio 10 (6-20) Glucose Level 165 mg/dL (70-99) Hemoglobin A1c 6.0 % (4.8-5.6) Calcium Level 8.7 mg/dL (8.5-10.1) Total Bilirubin 0.4 mg/dL (0.2-1.0) Aspartate Amino Transf (AST/SGOT) 77 U/L (15-37) Alanine Aminotransferase (ALT/SGPT) 78 U/L (16-63) Alkaline Phosphatase 69 U/L (46-116) Total Protein 7.3 g/dL (6.4-8.2) Albumin 2.6 g/dL (3.4-5.0) Albumin/Globulin Ratio 0.6 (1.0-1.7) Lactic Acid Level 1.3 mmol/L (0.4-2.0) Laboratory Tests Test 04/26/18 19:50 Lactic Acid Level 1.3 mmol/L (0.4-2.0) Medications Current Medications Ibuprofen (Motrin) 800 mg 1X ONCE PO Last administered on 04/25/18at 12:31; Start 04/25/18 at 12:15; Stop 04/25/18 at 12:16; Status DC Sodium Chloride 1,000 ml @ 1,000 mls/hr 1X ONCE IV Last administered on at 12:15; Start 04/25/18 at 12:15; Stop 04/25/18 at 13:14; Status DC Ondansetron HCl (Zofran) 4 mg 1X ONCE IV Last administered on 04/25/18at 12:30 ; Start 04/25/18 at 12:15; Stop 04/25/18 at 12:16; Status DC Sodium Chloride 1,000 ml @ 1,000 mls/hr 1X ONCE IV Last administered on at 12:45; Start 04/25/18 at 12:45; Stop 04/25/18 at 13:44; Status DC Azithromycin 250 ml @ 250 mls/hr 1X ONCE IV Last administered on 04/25/18at 14 :41; Start 04/25/18 at 14:30; Stop 04/25/18 at 15:29; Status DC Ceftriaxone Sodium 50 ml @ 100 mls/hr 1X ONCE IV ; Start 04/25/18 at 14:30; Stop 04/25/18 at 14:59; Status UNV Ondansetron HCl (Zofran) 4 mg PRN Q8HRS PRN IV NAUSEA/VOMITING; Start 04/25/18 at 14:30; Stop 04/26/18 at 14:29; Status DC Acetaminophen (Tylenol) 650 mg PRN Q4HRS PRN PO FEVER Last administered on 04/26at 09:02; Start 04/25/18 at 14:30; Stop 04/26/18 at 14:29; Status DC Albuterol/ Ipratropium (Duoneb) 3 ml RTQID NEB Last administered on 04/26/18at 11:40; Start 04/25/18 at 16:00; Stop 04/26/18 at 14:56; Status DC Ceftriaxone Sodium (Rocephin) 1 gm 1X ONCE IVP Last administered on 04/25/18at 14:41; Start 04/25/18 at 14:45; Stop 04/25/18 at 14:46; Status DC Amlodipine Besylate (Norvasc) 10 mg DAILY PO Last administered on 04/27/18at 10: 02; Start 04/26/18 at 09:00 Azithromycin 500 mg/Sodium Chloride 250 ml @ 250 mls/hr Q24H IV Last administered on 04/27/18at 10:01; Start 04/26/18 at 09:00 Ceftriaxone Sodium 50 ml @ 100 mls/hr 1X ONCE IV ; Start 04/26/18 at 08:00; Stop 04/26/18 at 08:29; Status UNV Ceftriaxone Sodium (Rocephin) 1 gm ONCE ONCE IVP Last administered on at 06:32; Start 04/26/18 at 08:00; Stop 04/26/18 at 08:01; Status DC Sodium Chloride 1,000 ml @ 75 mls/hr [id number] IV Last administered on at 13:37; Start 04/26/18 at 00:00 Albuterol Sulfate (Ventolin Neb Soln) 2.5 mg PRN Q4HRS PRN NEB SHORTNESS OF BREATH Last administered on 04/26/18at 03:00; Start 04/26/18 at 03:00; Stop 04/26 at 18:02; Status DC Ibuprofen (Motrin) 600 mg PRN Q6HRS PRN PO INFLAMMATION Last administered on at 06:51; Start 04/26/18 at 06:15 Ceftriaxone Sodium (Rocephin) 1 gm Q24H IVP Last administered on 04/27/18at 11: 27; Start 04/26/18 at 11:00 Lactobacillus Rhamnosus (Culturelle) 1 cap BID PO Last administered on at 10:02; Start 04/26/18 at 19:30 Albuterol/ Ipratropium (Duoneb) 3 ml RTQID NEB ; Start 04/26/18 at 16:00; Stop 04/26/18 at 17:53; Status DC Levalbuterol HCl (Xopenex) 1.25 mg RTQID NEB Last administered on 04/27/18at 11: 44; Start 04/26/18 at 20:00 Acetaminophen (Tylenol) 650 mg PRN Q6HRS PRN PO fever Last administered on 04/27at 08:24; Start 04/26/18 at 18:45 Linezolid (Zyvox) 600 mg BID PO Last administered on 04/27/18at 10:02; Start at 19:30; Stop 04/27/18 at 12:22; Status DC Active Scripts Active Reported Norvasc (Amlodipine Besylate) 10 Mg Tablet 10 Mg PO DAILY Vitals/I & O Vital Sign - Last 24 Hours 04/26/18 04/26/18 04/26/18 04/26/18 14:37 16:21 16:22 19:03 Temp 101.4 101.4 Pulse 101 Resp 20 B/P (MAP) 156/99 (118) Pulse Ox 88 88 90 97 O2 Delivery Room Air Nasal Cannula Nasal Cannula Room Air O2 Flow Rate 2.0 3.0 04/26/18 04/26/18 04/26/18 04/27/18 19:12 20:00 23:18 02:58 Temp 99.0 98.5 97.6 99.0 98.5 97.6 Pulse 96 83 72 Resp 20 20 18 B/P (MAP) 163/95 (117) 135/81 (99) 126/98 (107) Pulse Ox 92 97 94 O2 Delivery Nasal Cannula Room Air Nasal Cannula Nasal Cannula O2 Flow Rate 2.0 2.0 2.0 04/27/18 04/27/18 04/27/18 04/27/18 07:00 07:26 08:00 10:02 Temp 98.6 98.6 Pulse 79 79 Resp 20 B/P (MAP) 139/97 (111) 139/97 Pulse Ox 98 95 O2 Delivery Nasal Cannula Room Air Room Air O2 Flow Rate 2.0 2.0 04/27/18 04/27/18 11:00 11:46 Temp 98.4 98.4 Pulse 81 Resp 18 B/P (MAP) 124/91 (102) Pulse Ox 97 96 O2 Delivery Nasal Cannula Nasal Cannula O2 Flow Rate 2.0 2.0 Intake and Output 04/26/18 04/26/18 04/27/18 15:00 23:00 07:00 Intake Total 90 ml 1200 ml 1100 ml Balance 90 ml 1200 ml 1100 ml RODRÍGUEZ GOMEZ MD Apr 27, 2018 14:37
[2018-04-27] MEDS ORDERED: DOCUSATE SODIUM 100 MG CAPSULE. PO PRN (14:45)
[2018-04-27] MEDS ORDERED: MORPHINE SULFATE 2 MG/ML VIAL. IV PRN (14:45)
[2018-04-27] MEDS ORDERED: traMADol 50 MG TABLET PO PRN (14:45)
[2018-04-27] MEDS ORDERED: ONDANSETRON PF 4 MG/2 ML VIAL. IV PRN (14:45)
[2018-04-27 15:00] VITALS: BP 165/96
[2018-04-27] MEDS: ENOXAPARIN 40 MG/0.4 ML SYRINGE. SQ SCH (15:00)
[2018-04-27 19:40] VITALS: BP 154/92
--- NOTE | 2018-04-27 22:00 | CONS ---
DATE OF CONSULTATION: 04/27/2018 REQUESTING PHYSICIAN: Karolina Lockwood MD REASON FOR CONSULTATION: Pneumonia. HISTORY OF PRESENT ILLNESS: This is a 53-year-old -[place] gentleman in really good physical shape who came in with sudden onset of chills, fever, and a cough. The cough is mainly dry cough. The patient denies any nausea, vomiting. Denies any diarrhea, denies any headache or visual symptoms. The patient was admitted and started as pneumonia treatment. The patient has been receiving Rocephin, azithromycin, and Zyvox. The patient has been healthy. His last antibiotic was for sinusitis more than a year ago. The patient has no other ongoing medical problems. OTHER MEDICAL HISTORY: No other health history. SOCIAL HISTORY: Negative for smoking, alcohol use or drug use. ALLERGIES: No known drug allergies. CURRENT MEDICATIONS: Reviewed. REVIEW OF SYSTEMS: As per HPI. All other systems reviewed are negative. PHYSICAL EXAMINATION: GENERAL: Alert, oriented gentleman, not in distress. VITAL SIGNS: Stable. T-max is 102.7. HEENT: NAD. NECK: Supple. No JVD, no lymphadenopathy. LUNGS: Clear. CARDIOVASCULAR: S1, S2 regular. ABDOMEN: Benign. EXTREMITIES: No edema or cyanosis. SKIN: Unremarkable. NEUROLOGIC: The patient is neurologically intact. LABORATORY DATA: White count is 6.3, hemoglobin 13.0, platelets are 142,000. BUN and creatinine are 16 and 1.6. It actually has improved from 18 and 1.8. Lactic acid is normal. Hemoglobin A1c is 6.0. Influenza screen is negative. IMAGING DATA: Chest x-ray reviewed. Ultrasound is negative. IMPRESSION: 1. Community-acquired pneumonia. 2. Fever. 3. Elevated liver function tests. 4. Acute kidney injury. RECOMMENDATION: We would continue Rocephin. Continue azithromycin. Discontinue Zyvox supportive care. We will check the cultures and we will continue to follow, soon to be able to discharge. Discussion with the patient's sister, as well as his girlfriend done at the bedside. Thank you very much, Dr. Lockwood, for giving me opportunity to participate in this patient's care. ROYER MELVIN MD DR: LISY/haylee JOB#: [id number] / [id number]
[2018-04-27 23:02] VITALS: BP 144/97
[2018-04-28] VITALS (7 sets, daily range): BP systolic 147–195; BP diastolic 81–108
[2018-04-28 05:13] LABS: BASO % 1 % (0-3); EOS # 0.2 x10^3/uL (0.0-0.7); EOS % 4 % (0-3); HEMATOCRIT 38.2 % (39.0-53.0); HEMOGLOBIN 12.8 g/dL (13.0-17.5); LYMPH # 1.2 x10^3/uL (1.0-4.8); LYMPH % 20 % (24-48); MEAN CORPUSCULAR HEMOGLOBIN 30 pg (25-35); MEAN CORPUSCULAR HGB CONC 34 g/dL (31-37); MEAN CORPUSCULAR VOLUME 89 fL (79-100); MONO # 0.7 x10^3/uL (0.0-1.1); MONO % 11 % (0-9); NEUT % 65 % (31-73); PLATELET COUNT 191 x10^3/uL (140-400); RED BLOOD COUNT 4.31 x10^6/uL (4.30-5.70); RED CELL DISTRIBUTION WIDTH 13.9 % (11.5-14.5); WHITE BLOOD COUNT 6.2 x10^3/uL (4.0-11.0)
[2018-04-28] MEDS: IV NORMAL SALINE 1000ML BAG 1,000 ML IV SCH ×2 (05:20→21:49)
[2018-04-28 05:26] LABS: CREATININE 1.1 mg/dL (0.7-1.3); GFR 84.4; POTASSIUM 3.4 mmol/L (3.5-5.1)
[2018-04-28] MEDS: LEVALBUTEROL 1.25 MG/0.5 ML NEBU. NEB SCH ×4 (07:02→20:08)
[2018-04-28] MEDS: AZITHROMYCIN 500 MG in IV NORMAL SALINE 250ML 250 ML IV SCH (08:35)
[2018-04-28] MEDS: LACTOBACILLUS RHAMNOSUS GG 1 CAPSULE. PO SCH ×2 (08:36→21:49)
[2018-04-28] MEDS: amLODIPine BESYLATE 10 MG TABLET PO SCH (08:36)
--- NOTE | 2018-04-28 08:53 | PDOC ---
PULMONARY PROGRESS NOTES Subjective PT FEELS BETTER LESS SOA AND COUGH Vitals Vital Signs Date Time Temp Pulse Resp B/P (MAP) Pulse Ox O2 Delivery O2 Flow Rate FiO2 04/28/18 08:36 92 195/100 04/28/18 07:06 92 Nasal Cannula 2.0 04/28/18 07:00 99.0 20 99.0 ROS: No Nausea, No Chest Pain, No Abdominal Pain General: Alert Lungs: Crackles Cardiovascular: S1, S2 Abdomen: Soft, Non-tender Neuro Exam: Alert Extremities: No Edema Skin: Warm Labs Laboratory Tests Test 04/26/18 19:50 04/28/18 04:20 Lactic Acid Level 1.3 mmol/L (0.4-2.0) White Blood Count 6.2 x10^3/uL (4.0-11.0) Red Blood Count 4.31 x10^6/uL (4.30-5.70) Hemoglobin 12.8 g/dL (13.0-17.5) Hematocrit 38.2 % (39.0-53.0) Mean Corpuscular Volume 89 fL (79-100) Mean Corpuscular Hemoglobin 30 pg (25-35) Mean Corpuscular Hemoglobin Concent 34 g/dL (31-37) Red Cell Distribution Width 13.9 % (11.5-14.5) Platelet Count 191 x10^3/uL (140-400) Neutrophils (%) (Auto) 65 % (31-73) Lymphocytes (%) (Auto) 20 % (24-48) Monocytes (%) (Auto) 11 % (0-9) Eosinophils (%) (Auto) 4 % (0-3) Basophils (%) (Auto) 1 % (0-3) Neutrophils # (Auto) 4.0 x10^3uL (1.8-7.7) Lymphocytes # (Auto) 1.2 x10^3/uL (1.0-4.8) Monocytes # (Auto) 0.7 x10^3/uL (0.0-1.1) Eosinophils # (Auto) 0.2 x10^3/uL (0.0-0.7) Basophils # (Auto) 0.0 x10^3/uL (0.0-0.2) Sodium Level 143 mmol/L (136-145) Potassium Level 3.4 mmol/L (3.5-5.1) Chloride Level 106 mmol/L (98-107) Carbon Dioxide Level 27 mmol/L (21-32) Anion Gap 10 (6-14) Blood Urea Nitrogen 7 mg/dL (8-26) Creatinine 1.1 mg/dL (0.7-1.3) Estimated GFR (Cockcroft-Gault) 84.4 Glucose Level 105 mg/dL (70-99) Calcium Level 9.0 mg/dL (8.5-10.1) Laboratory Tests Test 04/28/18 04:20 White Blood Count 6.2 x10^3/uL (4.0-11.0) Red Blood Count 4.31 x10^6/uL (4.30-5.70) Hemoglobin 12.8 g/dL (13.0-17.5) Hematocrit 38.2 % (39.0-53.0) Mean Corpuscular Volume 89 fL (79-100) Mean Corpuscular Hemoglobin 30 pg (25-35) Mean Corpuscular Hemoglobin Concent 34 g/dL (31-37) Red Cell Distribution Width 13.9 % (11.5-14.5) Platelet Count 191 x10^3/uL (140-400) Neutrophils (%) (Auto) 65 % (31-73) Lymphocytes (%) (Auto) 20 % (24-48) Monocytes (%) (Auto) 11 % (0-9) Eosinophils (%) (Auto) 4 % (0-3) Basophils (%) (Auto) 1 % (0-3) Neutrophils # (Auto) 4.0 x10^3uL (1.8-7.7) Lymphocytes # (Auto) 1.2 x10^3/uL (1.0-4.8) Monocytes # (Auto) 0.7 x10^3/uL (0.0-1.1) Eosinophils # (Auto) 0.2 x10^3/uL (0.0-0.7) Basophils # (Auto) 0.0 x10^3/uL (0.0-0.2) Sodium Level 143 mmol/L (136-145) Potassium Level 3.4 mmol/L (3.5-5.1) Chloride Level 106 mmol/L (98-107) Carbon Dioxide Level 27 mmol/L (21-32) Anion Gap 10 (6-14) Blood Urea Nitrogen 7 mg/dL (8-26) Creatinine 1.1 mg/dL (0.7-1.3) Estimated GFR (Cockcroft-Gault) 84.4 Glucose Level 105 mg/dL (70-99) Calcium Level 9.0 mg/dL (8.5-10.1) Medications Active Scripts Medications Dose Route/Sig Max Daily Dose Days Date Category Norvasc (Amlodipine Besylate) 10 Mg Tablet 10 Mg PO DAILY 04/25/18 Reported Impression . IMPRESSION: 1. Acute hypoxic respiratory failure with high grade fever. This is secondary to a marked consolidation involving right lower lobe, suspect gram-negative pneumonia. 2. No significant history of tobacco use. 3. High grade fever secondary to pneumonia. 4. Abnormal V/Q scan, which was reviewed by me and shows multiple matched perfusion abnormalities in the right lower lobe consistent with pneumonia. No mismatched defects were seen. 5. Venous Dopplers were negative. Plan . PT IMPROVING WANTS TO GO HOME OK BY ME IF OK WITH ID IN AM D/C FOLLOW UP WITH ME IN 2 MONTHS WITH A REPEAT CT CHEST KARIE DIXON MD Apr 28, 2018 08:53
[2018-04-28] MEDS ORDERED: LABETALOL 20 MG/4 ML DISP.SYRIN. IVP PRN (09:15)
[2018-04-28] MEDS: ALPRAZolam 0.25 MG TABLET PO PRN ×2 (09:30→21:49)
[2018-04-28] MEDS: LISINOPRIL 20 MG TABLET PO SCH (09:32)
[2018-04-28] MEDS: cefTRIAXone IV Push 1 GM VIAL. IVP SCH (10:38)
[2018-04-28] MEDS: ACETAMINOPHEN 325 MG TABLET. PO PRN (10:38)
[2018-04-28] MEDS: IBUPROFEN 200 MG TABLET. PO PRN ×2 (10:38→21:48)
[2018-04-28] MEDS ORDERED: POTASSIUM CHLORIDE 20 MEQ TABLET.ER. PO ONE (10:45)
[2018-04-28] MEDS ORDERED: ZOLPIDEM 5 MG TABLET. PO PRN (11:45)
[2018-04-28] MEDS ORDERED: PROMETH/CODEINE 6.25/10MG 5 ML SYRUP. PO PRN (11:45)
--- NOTE | 2018-04-28 11:56 | PDOC ---
Infectious Disease Note Subjective Subjective feeling better, not using o2 did have low grade fever ROS ROS no n/v/d/sob Vital Sign Vital Signs Vital Signs Date Time Temp Pulse Resp B/P (MAP) Pulse Ox O2 Delivery O2 Flow Rate FiO2 04/28/18 11:26 91 Nasal Cannula 2.0 04/28/18 10:23 100.4 91 22 176/102 (126) 100.4 Physical Exam PHYSICAL EXAM GENERAL: Alert, oriented gentleman, not in distress. VITAL SIGNS: Stable. HEENT: NAD. NECK: Supple. No JVD, no lymphadenopathy. LUNGS: Clear. CARDIOVASCULAR: S1, S2 regular. ABDOMEN: Benign. EXTREMITIES: No edema or cyanosis. SKIN: Unremarkable. NEUROLOGIC: The patient is neurologically intact. Labs Lab Laboratory Tests Test 04/28/18 04:20 White Blood Count 6.2 x10^3/uL (4.0-11.0) Red Blood Count 4.31 x10^6/uL (4.30-5.70) Hemoglobin 12.8 g/dL (13.0-17.5) Hematocrit 38.2 % (39.0-53.0) Mean Corpuscular Volume 89 fL (79-100) Mean Corpuscular Hemoglobin 30 pg (25-35) Mean Corpuscular Hemoglobin Concent 34 g/dL (31-37) Red Cell Distribution Width 13.9 % (11.5-14.5) Platelet Count 191 x10^3/uL (140-400) Neutrophils (%) (Auto) 65 % (31-73) Lymphocytes (%) (Auto) 20 % (24-48) Monocytes (%) (Auto) 11 % (0-9) Eosinophils (%) (Auto) 4 % (0-3) Basophils (%) (Auto) 1 % (0-3) Neutrophils # (Auto) 4.0 x10^3uL (1.8-7.7) Lymphocytes # (Auto) 1.2 x10^3/uL (1.0-4.8) Monocytes # (Auto) 0.7 x10^3/uL (0.0-1.1) Eosinophils # (Auto) 0.2 x10^3/uL (0.0-0.7) Basophils # (Auto) 0.0 x10^3/uL (0.0-0.2) Sodium Level 143 mmol/L (136-145) Potassium Level 3.4 mmol/L (3.5-5.1) Chloride Level 106 mmol/L (98-107) Carbon Dioxide Level 27 mmol/L (21-32) Anion Gap 10 (6-14) Blood Urea Nitrogen 7 mg/dL (8-26) Creatinine 1.1 mg/dL (0.7-1.3) Estimated GFR (Cockcroft-Gault) 84.4 Glucose Level 105 mg/dL (70-99) Calcium Level 9.0 mg/dL (8.5-10.1) Objective Assessment CAP Fever Renal insufficiency Elevated liver function Plan Plan of Care Storm supportive care check cultures d/w girlfrienROYER Agudelo MD Apr 28, 2018 11:56
--- NOTE | 2018-04-28 14:09 | PDOC ---
PROGRESS NOTES Chief Complaint Chief Complaint CAP mekhi, vasomotor morbid obesity sepsis, fever HTN plan: fu with id, pulm on alana, ceftriaxone breath treatment ivf for now labs daily dvt ppx check bcx. other cx neg so far, neg flu. add lisinopril, on amlodipine ,add labetolol prn add xanax prn add more cough meds History of Present Illness History of Present Illness ROS: no fever, chills, sob or chest pain fever 04/26 still cough a lot dry cough 04/28: very anxious, saying not sleeping well at night. T 100.4, cough a lot, high BP Vitals Vitals Vital Signs Date Time Temp Pulse Resp B/P (MAP) Pulse Ox O2 Delivery O2 Flow Rate FiO2 04/28/18 11:26 91 Nasal Cannula 2.0 04/28/18 10:23 100.4 91 22 176/102 (126) 100.4 Physical Exam Physical Exam GENERAL: Alert, oriented gentleman, not in distress. VITAL SIGNS: Stable. HEENT: NAD. NECK: Supple. No JVD, no lymphadenopathy. LUNGS: bl mild coarse bs CARDIOVASCULAR: S1, S2 regular. ABDOMEN: Benign. EXTREMITIES: No edema or cyanosis. SKIN: Unremarkable. NEUROLOGIC: The patient is neurologically intact. General: Alert, Oriented X3, Cooperative Heart: Regular rate, Normal S1, Normal S2 Lungs: Crackles Abdomen: Normal bowel sounds, Soft Extremities: No clubbing, No cyanosis Skin: No rashes Labs LABS Laboratory Tests Test 04/28/18 04:20 White Blood Count 6.2 x10^3/uL (4.0-11.0) Red Blood Count 4.31 x10^6/uL (4.30-5.70) Hemoglobin 12.8 g/dL (13.0-17.5) Hematocrit 38.2 % (39.0-53.0) Mean Corpuscular Volume 89 fL (79-100) Mean Corpuscular Hemoglobin 30 pg (25-35) Mean Corpuscular Hemoglobin Concent 34 g/dL (31-37) Red Cell Distribution Width 13.9 % (11.5-14.5) Platelet Count 191 x10^3/uL (140-400) Neutrophils (%) (Auto) 65 % (31-73) Lymphocytes (%) (Auto) 20 % (24-48) Monocytes (%) (Auto) 11 % (0-9) Eosinophils (%) (Auto) 4 % (0-3) Basophils (%) (Auto) 1 % (0-3) Neutrophils # (Auto) 4.0 x10^3uL (1.8-7.7) Lymphocytes # (Auto) 1.2 x10^3/uL (1.0-4.8) Monocytes # (Auto) 0.7 x10^3/uL (0.0-1.1) Eosinophils # (Auto) 0.2 x10^3/uL (0.0-0.7) Basophils # (Auto) 0.0 x10^3/uL (0.0-0.2) Sodium Level 143 mmol/L (136-145) Potassium Level 3.4 mmol/L (3.5-5.1) Chloride Level 106 mmol/L (98-107) Carbon Dioxide Level 27 mmol/L (21-32) Anion Gap 10 (6-14) Blood Urea Nitrogen 7 mg/dL (8-26) Creatinine 1.1 mg/dL (0.7-1.3) Estimated GFR (Cockcroft-Gault) 84.4 Glucose Level 105 mg/dL (70-99) Calcium Level 9.0 mg/dL (8.5-10.1) Assessment and Plan Assessmemt and Plan Problems Medical Problems: (1) Community acquired pneumonia Status: Acute Comment Review of Relevant I have reviewed the following items erick (where applicable) has been applied. Labs Laboratory Tests Test 04/26/18 19:50 04/28/18 04:20 Lactic Acid Level 1.3 mmol/L (0.4-2.0) White Blood Count 6.2 x10^3/uL (4.0-11.0) Red Blood Count 4.31 x10^6/uL (4.30-5.70) Hemoglobin 12.8 g/dL (13.0-17.5) Hematocrit 38.2 % (39.0-53.0) Mean Corpuscular Volume 89 fL (79-100) Mean Corpuscular Hemoglobin 30 pg (25-35) Mean Corpuscular Hemoglobin Concent 34 g/dL (31-37) Red Cell Distribution Width 13.9 % (11.5-14.5) Platelet Count 191 x10^3/uL (140-400) Neutrophils (%) (Auto) 65 % (31-73) Lymphocytes (%) (Auto) 20 % (24-48) Monocytes (%) (Auto) 11 % (0-9) Eosinophils (%) (Auto) 4 % (0-3) Basophils (%) (Auto) 1 % (0-3) Neutrophils # (Auto) 4.0 x10^3uL (1.8-7.7) Lymphocytes # (Auto) 1.2 x10^3/uL (1.0-4.8) Monocytes # (Auto) 0.7 x10^3/uL (0.0-1.1) Eosinophils # (Auto) 0.2 x10^3/uL (0.0-0.7) Basophils # (Auto) 0.0 x10^3/uL (0.0-0.2) Sodium Level 143 mmol/L (136-145) Potassium Level 3.4 mmol/L (3.5-5.1) Chloride Level 106 mmol/L (98-107) Carbon Dioxide Level 27 mmol/L (21-32) Anion Gap 10 (6-14) Blood Urea Nitrogen 7 mg/dL (8-26) Creatinine 1.1 mg/dL (0.7-1.3) Estimated GFR (Cockcroft-Gault) 84.4 Glucose Level 105 mg/dL (70-99) Calcium Level 9.0 mg/dL (8.5-10.1) Laboratory Tests Test 04/28/18 04:20 White Blood Count 6.2 x10^3/uL (4.0-11.0) Red Blood Count 4.31 x10^6/uL (4.30-5.70) Hemoglobin 12.8 g/dL (13.0-17.5) Hematocrit 38.2 % (39.0-53.0) Mean Corpuscular Volume 89 fL (79-100) Mean Corpuscular Hemoglobin 30 pg (25-35) Mean Corpuscular Hemoglobin Concent 34 g/dL (31-37) Red Cell Distribution Width 13.9 % (11.5-14.5) Platelet Count 191 x10^3/uL (140-400) Neutrophils (%) (Auto) 65 % (31-73) Lymphocytes (%) (Auto) 20 % (24-48) Monocytes (%) (Auto) 11 % (0-9) Eosinophils (%) (Auto) 4 % (0-3) Basophils (%) (Auto) 1 % (0-3) Neutrophils # (Auto) 4.0 x10^3uL (1.8-7.7) Lymphocytes # (Auto) 1.2 x10^3/uL (1.0-4.8) Monocytes # (Auto) 0.7 x10^3/uL (0.0-1.1) Eosinophils # (Auto) 0.2 x10^3/uL (0.0-0.7) Basophils # (Auto) 0.0 x10^3/uL (0.0-0.2) Sodium Level 143 mmol/L (136-145) Potassium Level 3.4 mmol/L (3.5-5.1) Chloride Level 106 mmol/L (98-107) Carbon Dioxide Level 27 mmol/L (21-32) Anion Gap 10 (6-14) Blood Urea Nitrogen 7 mg/dL (8-26) Creatinine 1.1 mg/dL (0.7-1.3) Estimated GFR (Cockcroft-Gault) 84.4 Glucose Level 105 mg/dL (70-99) Calcium Level 9.0 mg/dL (8.5-10.1) Medications Current Medications Ibuprofen (Motrin) 800 mg 1X ONCE PO Last administered on 04/25/18at 12:31; Start 04/25/18 at 12:15; Stop 04/25/18 at 12:16; Status DC Sodium Chloride 1,000 ml @ 1,000 mls/hr 1X ONCE IV Last administered on at 12:15; Start 04/25/18 at 12:15; Stop 04/25/18 at 13:14; Status DC Ondansetron HCl (Zofran) 4 mg 1X ONCE IV Last administered on 04/25/18at 12:30 ; Start 04/25/18 at 12:15; Stop 04/25/18 at 12:16; Status DC Sodium Chloride 1,000 ml @ 1,000 mls/hr 1X ONCE IV Last administered on at 12:45; Start 04/25/18 at 12:45; Stop 04/25/18 at 13:44; Status DC Azithromycin 250 ml @ 250 mls/hr 1X ONCE IV Last administered on 04/25/18at 14 :41; Start 04/25/18 at 14:30; Stop 04/25/18 at 15:29; Status DC Ceftriaxone Sodium 50 ml @ 100 mls/hr 1X ONCE IV ; Start 04/25/18 at 14:30; Stop 04/25/18 at 14:59; Status UNV Ondansetron HCl (Zofran) 4 mg PRN Q8HRS PRN IV NAUSEA/VOMITING; Start 04/25/18 at 14:30; Stop 04/26/18 at 14:29; Status DC Acetaminophen (Tylenol) 650 mg PRN Q4HRS PRN PO FEVER Last administered on 04/26at 09:02; Start 04/25/18 at 14:30; Stop 04/26/18 at 14:29; Status DC Albuterol/ Ipratropium (Duoneb) 3 ml RTQID NEB Last administered on 04/26/18at 11:40; Start 04/25/18 at 16:00; Stop 04/26/18 at 14:56; Status DC Ceftriaxone Sodium (Rocephin) 1 gm 1X ONCE IVP Last administered on 04/25/18at 14:41; Start 04/25/18 at 14:45; Stop 04/25/18 at 14:46; Status DC Amlodipine Besylate (Norvasc) 10 mg DAILY PO Last administered on 04/28/18at 08: 36; Start 04/26/18 at 09:00 Azithromycin 500 mg/Sodium Chloride 250 ml @ 250 mls/hr Q24H IV Last administered on 04/28/18at 08:35; Start 04/26/18 at 09:00 Ceftriaxone Sodium 50 ml @ 100 mls/hr 1X ONCE IV ; Start 04/26/18 at 08:00; Stop 04/26/18 at 08:29; Status UNV Ceftriaxone Sodium (Rocephin) 1 gm ONCE ONCE IVP Last administered on at 06:32; Start 04/26/18 at 08:00; Stop 04/26/18 at 08:01; Status DC Sodium Chloride 1,000 ml @ 75 mls/hr [id number] IV Last administered on at 05:20; Start 04/26/18 at 00:00 Albuterol Sulfate (Ventolin Neb Soln) 2.5 mg PRN Q4HRS PRN NEB SHORTNESS OF BREATH Last administered on 04/26/18at 03:00; Start 04/26/18 at 03:00; Stop 04/26 at 18:02; Status DC Ibuprofen (Motrin) 600 mg PRN Q6HRS PRN PO INFLAMMATION Last administered on at 10:38; Start 04/26/18 at 06:15 Ceftriaxone Sodium (Rocephin) 1 gm Q24H IVP Last administered on 04/28/18 10: 38; Start 04/26/18 at 11:00 Lactobacillus Rhamnosus (Culturelle) 1 cap BID PO Last administered on at 08:36; Start 04/26/18 at 19:30 Albuterol/ Ipratropium (Duoneb) 3 ml RTQID NEB ; Start 04/26/18 at 16:00; Stop 04/26/18 at 17:53; Status DC Levalbuterol HCl (Xopenex) 1.25 mg RTQID NEB Last administered on 04/28/18at 07: 02; Start 04/26/18 at 20:00 Acetaminophen (Tylenol) 650 mg PRN Q6HRS PRN PO fever Last administered on 04/27at 08:24; Start 04/26/18 at 18:45; Stop 04/27/18 at 14:45; Status DC Linezolid (Zyvox) 600 mg BID PO Last administered on 04/27/18at 10:02; Start at 19:30; Stop 04/27/18 at 12:22; Status DC Enoxaparin Sodium (Lovenox 40mg Syringe) 40 mg Q24H SQ Last administered on 15:00; Start 04/27/18 at 15:00 Acetaminophen (Tylenol) 650 mg PRN Q6HRS PRN PO FEVER Last administered on 04/28at 10:38; Start 04/27/18 at 14:45 Ondansetron HCl (Zofran) 4 mg PRN Q6HRS PRN IV NAUSEA/VOMITING Last administered on 04/28/18at 10:44; Start 04/27/18 at 14:45 Morphine Sulfate (Morphine Sulfate) 2 mg PRN Q2HR PRN IV MODERATE TO SEVERE PAIN; Start 04/27/18 at 14:45 Tramadol HCl (Ultram) 50 mg PRN Q6HRS PRN PO MILD TO MODERATE PAIN; Start 04/27 at 14:45 Docusate Sodium (Colace) 100 mg PRN DAILY PRN PO CONSTIPATION; Start 04/27/18 at 14:45 Guaifenesin (Mucinex) 600 mg BID PO Last administered on 04/28/18at 08:36; Start 04/27/18 at 21:00 Labetalol HCl (Normodyne Iv Push) 20 mg PRN Q2HR PRN IVP HYPERTENSION, SEE COMMENTS; Start 04/28/18 at 09:15 Lisinopril (Prinivil) 40 mg DAILY PO Last administered on 04/28/18at 09:32; Start 04/28/18 at 10:00 Alprazolam (Xanax) 0.25 mg PRN Q8HRS PRN PO ANXIETY / AGITATION Last administered on 04/28/18at 09:30; Start 04/28/18 at 09:15 Potassium Chloride (Klor-Con) 40 meq 1X ONCE PO Last administered on at 10:44; Start 04/28/18 at 10:45; Stop 04/28/18 at 10:47; Status DC Zolpidem Tartrate (Ambien) 5 mg PRN QHS PRN PO INSOMNIA; Start 04/28/18 at 11: 45 Promethazine HCl/ Codeine (Phenergan With Codeine Oral Syrup) 5 ml PRN Q6HRS PRN PO COUGH; Start 04/28/18 at 11:45 Benzonatate (Tessalon Perle) 100 mg [id number] PO ; Start 04/28/18 at 14:00 Active Scripts Active Reported Norvasc (Amlodipine Besylate) 10 Mg Tablet 10 Mg PO DAILY Vitals/I & O Vital Sign - Last 24 Hours 04/27/18 04/27/18 04/27/18 04/27/18 15:00 15:40 16:11 19:40 Temp 99.0 99.5 98.2 99.0 99.5 98.2 Pulse 80 85 Resp 18 20 B/P (MAP) 165/96 (119) 154/92 (112) Pulse Ox 97 95 94 95 O2 Delivery Nasal Cannula Nasal Cannula Nasal Cannula Nasal Cannula O2 Flow Rate 1.0 1.0 2.0 1.0 04/27/18 04/27/18 04/27/18 04/28/18 20:00 20:00 23:02 03:07 Temp 98.2 97.9 98.2 97.9 Pulse 72 79 Resp 20 16 B/P (MAP) 144/97 (113) 160/108 (125) Pulse Ox 94 96 91 O2 Delivery Room Air Nasal Cannula Nasal Cannula Nasal Cannula O2 Flow Rate 2.0 1.0 1.0 04/28/18 04/28/18 04/28/18 04/28/18 04:00 07:00 07:06 08:00 Temp 99.0 99.0 Pulse 92 Resp 20 B/P (MAP) 156/92 (113) 195/100 (131) Pulse Ox 94 92 O2 Delivery Room Air Nasal Cannula Room Air O2 Flow Rate 2.0 2.0 04/28/18 04/28/18 04/28/18 04/28/18 08:36 09:32 10:23 11:18 Temp 100.4 100.4 Pulse 92 92 91 Resp 22 B/P (MAP) 195/100 195/100 176/102 (126) Pulse Ox 92 O2 Delivery Room Air Nasal Cannula O2 Flow Rate 2.0 04/28/18 11:26 Pulse Ox 91 O2 Delivery Nasal Cannula O2 Flow Rate 2.0 Intake and Output 04/27/18 04/27/18 04/28/18 15:00 23:00 07:00 Intake Total 740 ml 400 ml 1060 ml Balance 740 ml 400 ml 1060 ml RODRÍGUEZ GOMEZ MD Apr 28, 2018 14:09
[2018-04-28] MEDS: BENZONATATE 100 MG CAPSULE. PO SCH ×2 (14:32→21:49)
[2018-04-28] MEDS: ENOXAPARIN 40 MG/0.4 ML SYRINGE. SQ SCH (14:33)
[2018-04-29] MEDS: LEVALBUTEROL 1.25 MG/0.5 ML NEBU. NEB SCH ×2 (06:51→10:44)
[2018-04-29 07:00] VITALS: BP 174/110
[2018-04-29] MEDS: BENZONATATE 100 MG CAPSULE. PO SCH (09:22)
[2018-04-29] MEDS: AZITHROMYCIN 500 MG in IV NORMAL SALINE 250ML 250 ML IV SCH (09:22)
[2018-04-29] MEDS: LACTOBACILLUS RHAMNOSUS GG 1 CAPSULE. PO SCH (09:23)
[2018-04-29] MEDS: amLODIPine BESYLATE 10 MG TABLET PO SCH (09:23)
[2018-04-29] MEDS: LISINOPRIL 20 MG TABLET PO SCH (09:27)
[2018-04-29 11:00] VITALS: BP 142/91
[2018-04-29] MEDS ORDERED: LISI-130 PO (11:09)
[2018-04-29] MEDS ORDERED: AZIT250T6 PO (11:09)
[2018-04-29] MEDS ORDERED: AMOX1TAB11 PO (11:09)
[2018-04-29] MEDS ORDERED: AMLO10TA4 PO (11:09)
[2018-04-29] MEDS ORDERED: BENZ-8 PO (11:09)
--- NOTE | 2018-04-29 11:42 | PDOC ---
Infectious Disease Note Subjective Subjective feeling good ROS ROS no n/v/d/sob/fever Vital Sign Vital Signs Vital Signs Date Time Temp Pulse Resp B/P (MAP) Pulse Ox O2 Delivery O2 Flow Rate FiO2 04/29/18 11:00 98.4 77 20 142/91 (108) 98 Nasal Cannula 2.0 98.4 Physical Exam PHYSICAL EXAM GENERAL: Alert, oriented gentleman, not in distress. VITAL SIGNS: Stable. HEENT: NAD. NECK: Supple. No JVD, no lymphadenopathy. LUNGS: bl mild coarse bs CARDIOVASCULAR: S1, S2 regular. ABDOMEN: Benign. EXTREMITIES: No edema or cyanosis. SKIN: Unremarkable. NEUROLOGIC: The patient is neurologically intact. Objective Assessment CAP Fever Renal insufficiency Elevated liver function Plan Plan of Care d/c ok supportive care d/w ROYER Cristina MD Apr 29, 2018 11:42
--- NOTE | 2018-04-29 13:30 | PDOC3 ---
Discharge Summary [facility] Date of Admission: Apr 25, 2018 Discharge Date: Apr 29, 2018 Admitting Diagnosis CAP mekhi, vasomotor morbid obesity sepsis, fever HTN plan: fu with mark pretty on alana, ceftriaxone breath treatment ivf for now labs daily dvt ppx check bcx. other cx neg so far, neg flu. add lisinopril, on amlodipine ,add labetolol prn add xanax prn add more cough meds History of Present Illness History of Present Illness ROS: no fever, chills, sob or chest pain fever 04/26 still cough a lot dry cough 04/28: very anxious, saying not sleeping well at night. T 100.4, cough a lot, high BP Vitals Vitals Vital Signs Date Time Temp Pulse Resp B/P (MAP) Pulse Ox O2 Delivery O2 Flow Rate FiO2 04/28/18 11:26 91 Nasal Cannula 2.0 04/28/18 10:23 100.4 91 22 176/102 (126) 100.4 Physical Exam Physical Exam Final Diagnosis m CONSULTS id pulm Brief Hospital Course Mr. Ennis is a 53 old M, comes for cough, sob, was found CAP. iv alana and ceftriaxone was given. still having fever daily, last night 100.4. today afebrile. pt feels better. required NC 2L, now on RA, sat 94% as per nurse. stable to dc. HTN meds added. dc home with augmentin and alana. albuterol prn. dc time 35min. GENERAL: Alert, oriented gentleman, not in distress. VITAL SIGNS: Stable. HEENT: NAD. NECK: Supple. No JVD, no lymphadenopathy. LUNGS: bl mild coarse bs CARDIOVASCULAR: S1, S2 regular. ABDOMEN: Benign. EXTREMITIES: No edema or cyanosis. SKIN: Unremarkable. NEUROLOGIC: The patient is neurologically intact. Disposition home CONDITION AT DISCHARGE: Improved Scheduled Amlodipine Besylate (Norvasc), 10 MG PO DAILY Amoxicillin/Potassium Clav (Amox Tr-K Clv 875-125 Mg Tab), 1 TAB PO BID Azithromycin (Azithromycin Tablet), 250 MG PO DAILY Benzonatate (Benzonatate), 100 MG PO [id number] Lisinopril (Lisinopril), 40 MG PO DAILY Discontinued Medications Amlodipine Besylate (Amlodipine Besylate), 5 MG PO DAILY, (Reported) Azithromycin (Azithromycin Tablet), 1 PKG PO UD Ibuprofen (Ibuprofen), 600 MG PO PRN Q6HRS PRN for INFLAMMATION Ondansetron (Ondansetron Odt), 1 TAB PO PRN Q6-8HRS RODRÍGUEZ GOMEZ MD Apr 29, 2018 13:30
--- NOTE | 2018-04-29 14:22 | PDOC ---
PULMONARY PROGRESS NOTES Subjective PT FEELS BETTER LESS SOA AND COUGH Vitals Vital Signs Date Time Temp Pulse Resp B/P (MAP) Pulse Ox O2 Delivery O2 Flow Rate FiO2 04/29/18 12:00 16 94 Room Air 04/29/18 11:00 98.4 77 142/91 (108) 2.0 98.4 ROS: No Nausea, No Chest Pain, No Abdominal Pain General: Alert Lungs: Crackles Cardiovascular: S1, S2 Abdomen: Soft, Non-tender Neuro Exam: Alert Extremities: No Edema Skin: Warm Labs Laboratory Tests Test 04/28/18 04:20 White Blood Count 6.2 x10^3/uL (4.0-11.0) Red Blood Count 4.31 x10^6/uL (4.30-5.70) Hemoglobin 12.8 g/dL (13.0-17.5) Hematocrit 38.2 % (39.0-53.0) Mean Corpuscular Volume 89 fL (79-100) Mean Corpuscular Hemoglobin 30 pg (25-35) Mean Corpuscular Hemoglobin Concent 34 g/dL (31-37) Red Cell Distribution Width 13.9 % (11.5-14.5) Platelet Count 191 x10^3/uL (140-400) Neutrophils (%) (Auto) 65 % (31-73) Lymphocytes (%) (Auto) 20 % (24-48) Monocytes (%) (Auto) 11 % (0-9) Eosinophils (%) (Auto) 4 % (0-3) Basophils (%) (Auto) 1 % (0-3) Neutrophils # (Auto) 4.0 x10^3uL (1.8-7.7) Lymphocytes # (Auto) 1.2 x10^3/uL (1.0-4.8) Monocytes # (Auto) 0.7 x10^3/uL (0.0-1.1) Eosinophils # (Auto) 0.2 x10^3/uL (0.0-0.7) Basophils # (Auto) 0.0 x10^3/uL (0.0-0.2) Sodium Level 143 mmol/L (136-145) Potassium Level 3.4 mmol/L (3.5-5.1) Chloride Level 106 mmol/L (98-107) Carbon Dioxide Level 27 mmol/L (21-32) Anion Gap 10 (6-14) Blood Urea Nitrogen 7 mg/dL (8-26) Creatinine 1.1 mg/dL (0.7-1.3) Estimated GFR (Cockcroft-Gault) 84.4 Glucose Level 105 mg/dL (70-99) Calcium Level 9.0 mg/dL (8.5-10.1) Medications Active Scripts Medications Dose Route/Sig Max Daily Dose Days Date Category Norvasc (Amlodipine Besylate) 10 Mg Tablet 10 Mg PO DAILY 04/25/18 Reported Impression . IMPRESSION: 1. Acute hypoxic respiratory failure with high grade fever. This is secondary to a marked consolidation involving right lower lobe, suspect gram-negative pneumonia. 2. No significant history of tobacco use. 3. High grade fever secondary to pneumonia. 4. Abnormal V/Q scan, which was reviewed by me and shows multiple matched perfusion abnormalities in the right lower lobe consistent with pneumonia. No mismatched defects were seen. 5. Venous Dopplers were negative. Plan . D/C D/W DR MELVIN AND JASON FOLLOW UP WITH ME IN 2 MONTHS WITH A REPEAT CT CHEST KARIE DIXON MD Apr 29, 2018 14:22
[2018-04-29] MEDS ORDERED: AMOXICILLIN/K CLAV 875/125MG TABLET. PO SCH (21:00)
[2018-04-30] MEDS ORDERED: AZITHROMYCIN 250 MG TABLET. PO SCH (09:00)
== END 2018-04-29 13:50 | disposition home or self-care (01) | DRG 871 ==
LOC: ER 11:48 → 6 SOUTH 14:21
PROVIDERS: ADMIT Hospitalist; ATTEND Hospitalist
DX: A41.9 Sepsis, unspecified organism (principal); J18.9 Pneumonia, unspecified organism; J96.01 Acute respiratory failure with hypoxia; N17.0 Acute kidney failure with tubular necrosis; I10 Essential (primary) hypertension; E66.01 Morbid (severe) obesity due to excess calories; Z68.34 Body mass index [BMI] 34.0-34.9, adult
CPT/HCPCS: 36415; 71046; 71250; 78582; 80048; 80053; 81001; 83036; 83605; 85025; 87040; 87449; 87804; 93970; 94640; 94760; 96361; 96374; 96375; A9540; A9558; J0456; J0696; J1650; J2405; J3490; J7030; J7050; J7613; J7620; 99285-25

== ENCOUNTER → 2018-05-18 | Outpatient (CLI) | payer OTHER ==
[2018-04-29 11:00] VITALS: BP 142/91
[~2018-05-18] MED LIST changes: +AMLO10TA4 PO; +AMOX1TAB11 PO; +AZIT250T6 PO; +BENZ-8 PO; +IBUP-1007 PO; +LISI-130 PO; +ONDA4TAB12 PO
--- NOTE | 2018-05-18 09:43 | KCIC ---
Chest radiograph 05/18/2018 12:00 AM INDICATION: Pneumonia, shortness of air and nonproductive cough COMPARISON: CT chest April 25, 2018 TECHNIQUE: Frontal and lateral views of the chest are provided. FINDINGS: The cardiomediastinal silhouette is within normal limits. There are no pleural effusions. There is no pulmonary vascular congestion. There is no pneumothorax. Improved aeration of the lungs with mild residual strandy density at the right lung base best viewed on the lateral examination. No significant osseous abnormality is identified. IMPRESSION: Minimal residual airspace disease at the posterior right lung base which may represent subsegmental atelectasis versus scarring versus residual infiltrate. Additional 3-4 week chest radiograph may be of benefit to ensure complete resolution. Electronically signed by: Kathy Stauffer MD (05/18/2018 9:39 AM) [email or web address]
== END | disposition home or self-care (01) ==
LOC: KCIC 09:07
PROVIDERS: ATTEND Family Medicine
DX: J18.9 Pneumonia, unspecified organism (principal)
CPT/HCPCS: 71046

== ENCOUNTER → 2018-07-20 | Outpatient (CLI) | payer OTHER ==
[~2018-07-20] MED LIST changes: +AMLO5TAB10 PO; -AMLO5TAB7 PO
--- NOTE | 2018-07-20 16:04 | KCIC ---
CT CHEST WO CONTRAST Indication: Lung nodule Technique: Noncontrast CT imaging was performed of the chest, multiplanar reconstruction images submitted. One or more of the following individualized dose reduction techniques were utilized for this examination: 1. Automated exposure control 2. Adjustment of the mA and/or kV according to patient size 3. Use of iterative reconstruction technique. Comparison: April 26, 2018 Findings: Previously seen right lower lobe infiltrate has mostly resolved. There is some residual more linear-appearing density of the right lower lobe likely mild atelectasis. There is a small residual 0.4 cm right lower lobe nodule axial image 86 series 3. There is also possible nodule right lower lobe about 2.6 cm image 157 series 3. There are trace residual pleural effusions bilaterally. There is no pneumothorax. Major airways are patent. No significantly enlarged nodes are identified of the chest on this exam. There is again mild density of the anterior mediastinum without mass effect unchanged. There is small 0.3 cm left renal calculus. There is multilevel thoracic degenerative disc disease and spondylosis. There is elevation of the right hemidiaphragm as seen previously. IMPRESSION: 1. Previously seen right lower lobe infiltrate has mostly resolved left residual likely mild atelectasis, also a couple of small residual right lower lobe nodules. Regarding the visualized nodules, optional 12 month follow-up could be performed if increased risk factors for neoplasm as per revised Fleischner guidelines. There are trace residual pleural effusions bilaterally. 2. There is small nonobstructive left renal calculus. Electronically signed by: Boni Madrigal MD (07/20/2018 4:01 PM) [facility]-[id number]
== END | disposition home or self-care (01) ==
LOC: KCIC CT 14:37
PROVIDERS: ATTEND Internal Medicine Pulmonary Disease
DX: R91.1 Solitary pulmonary nodule (principal); N20.0 Calculus of kidney; M51.34 Other intervertebral disc degeneration, thoracic region; M47.894 Other spondylosis, thoracic region; J98.6 Disorders of diaphragm; I10 Essential (primary) hypertension
CPT/HCPCS: 71250

== ENCOUNTER → 2021-01-11 | Outpatient (CLI) | payer OTHER ==
[~2021-01-11] MED LIST changes: +AMLO-186 PO; -AMLO5TAB10 PO
--- NOTE | 2021-01-11 12:29 | KCIC ---
Examination: MRI of the Right knee without contrast HISTORY: History of right knee pain medially COMPARISON: None available Technique: Multiplanar, multisequence MR imaging of the right knee was performed without contrast. FINDINGS: The anterior cruciate ligament, posterior cruciate ligament appears intact. There is blunting of the junction of the body and posterior horn of the medial meniscus likely tear. There is minimal extrusio n of the medial meniscus medially. The lateral meniscus appears intact. The medial collateral ligamen t is intact. There is mild increased T2 signal identified about the medial collateral ligament. The l ateral collateral ligamentous complex including the fibular collateral ligament, biceps femoris tendo n, popliteus tendon appears intact. The extensor mechanism appears intact. There is severe joint spac e loss identified in the medial, lateral, patellofemoral compartments. Complete cartilage loss identi fied in the patellofemoral compartment with some small subchondral cystic changes. There is deep fiss uring of cartilage identified in the medial, lateral compartments. Multiple small subchondral cystic changes identified in the medial tibial plateau posteriorly. The extensor mechanism appears intact. M oderate knee joint effusion. Small leaking popliteal cyst identified. There are 2 small low intensity foci identified in the knee joint lateral to the lateral tibial plateau measuring 7 mm likely loose bodies. IMPRESSION: 1. Blunting of the junction of the body and posterior horn of the medial meniscus likely tear. There is minimal extrusion of the medial meniscus medially. 2. Severe tricompartmental degenerative changes most in the patellofemoral compartment. 3. Moderate knee joint effusion with a small leaking popliteal cyst. 4. There are 2 small low intensity foci identified in the knee joint lateral to the lateral tibial p lateau measuring 7 mm likely loose bodies. Electronically signed by: Turner Guaman MD (01/11/2021 12:27 PM) [id number]
== END ==
LOC: KCIC MRI 09:08
PROVIDERS: ATTEND Orthopaedic Surgery
DX: M17.11 Unilateral primary osteoarthritis, right knee (principal); M25.461 Effusion, right knee; M25.861 Other specified joint disorders, right knee
CPT/HCPCS: 73721

== ENCOUNTER 2021-02-23 08:15 | Day surgery (SDC) | payer OTHER ==
[~2021-02-23] VITALS: Ht 174 cm; Wt 118.0 kg
[~2021-02-23 08:15] MED LIST changes: +HYDROmorphone 2 MG/ML VIAL IVP PRN; +IV RINGERS,LACTATED 1000ML 1,000 ML IV SCH; +MORPHINE SULFATE 2 MG/ML INJ. IVP PRN; +PROCHLORPERAZINE 10 MG/2 ML VIAL. IVP PRN; +fentaNYL PF VIAL 100 MCG/2 ML VIAL IVP PRN
[2021-02-23] MEDS ORDERED: ceFAZolin SODIUM 3 GM in IV DEXTROSE 5% 100ML 100 ML IV ONE (08:30)
[2021-02-23] MEDS ORDERED: HYDR12.575 PO (08:36)
[2021-02-23] MEDS ORDERED: BUPIVACAINE-EPI 0.5% 30 ML VIAL KIT. ONE (08:49)
[2021-02-23] MEDS ORDERED: hydrALAZINE 20 MG/ML VIAL. IVP ONE (09:00)
[2021-02-23] MEDS ORDERED: fentaNYL PF VIAL 100 MCG/2 ML VIAL ONE ×2 (09:05→10:55)
[2021-02-23] MEDS ORDERED: LIDOCAINE 2% PF 5 ML VIAL. ONE (09:05)
[2021-02-23] MEDS ORDERED: PROPOFOL 10 MG/ML (20ML) VIAL. IV ONE (09:05)
[2021-02-23] MEDS ORDERED: DEXAMETHASONE SOD PHOS 4 MG/ML VIAL ONE (10:23)
[2021-02-23] MEDS ORDERED: SEVOFLURANE 31 TO 60 MINUTES. IH ONE (10:23)
[2021-02-23] MEDS ORDERED: ONDANSETRON PF 4 MG/2 ML VIAL. ONE (10:23)
[2021-02-23] MEDS ORDERED: SUCCINYLCHOLINE 200 MG/10 ML VIAL. ONE (11:11)
[2021-02-23] MEDS ORDERED: IPRATRPIUM/ALBUTEROL 0.5/2.5MG 3 ML NEBU. ONE (11:18)
[2021-02-23] MEDS ORDERED: GLYCOPYRROLATE 1 MG/5 ML VIAL. ONE (11:18)
[2021-02-23] MEDS ORDERED: IPRATRPIUM/ALBUTEROL 0.5/2.5MG 3 ML NEBU. NEB ONE (11:30)
[2021-02-23 12:20] VITALS: BP 146/71
--- NOTE | 2021-02-23 12:25 | RAD ---
EXAM: No acute cardiac pulmonary abnormality. 02/23/2021 11:53 AM CLINICAL INDICATION: Postop, difficulty breathing COMPARISON: Chest radiograph 05/18/2018 TECHNIQUE: AP upright view of the chest FINDINGS: The heart and mediastinum are normal. The lungs are hypoexpanded. No consolidation, pleura l effusion, or pneumothorax. Pulmonary vascularity is normal. No acute osseous abnormality. IMPRESSION: No acute cardiopulmonary abnormality. Electronically signed by: Karishma Barbosa MD (02/23/2021 12:22 PM) [id number]
[2021-02-23] MEDS ORDERED: HYDR-2765 PO (12:51)
--- NOTE | 2021-02-23 12:54 | DISCH ---
DISCHARGE INSTRUCTIONS Condition on Discharge Condition on Discharge: Stable Activity After Discharge Activity Instructions for Disc: Activity as tolerated Exercise Instruction after Dis: Progress as tolerated Weight Bearing Status after Di: No restrictions Diet after Discharge Diet after Discharge: Regular Wound Incision Care Wound/Incision Care: Ice to area for comfort, Change dressing (Remove dressing in 2 days may then shower) Contacting the after DC Call your doctor for: Concerns you may have Follow-Up Follow up with: Irene or Katherine 10 days KIT WILLIAMSON MD Feb 23, 2021 12:54
--- NOTE | 2021-02-23 18:00 | PDOC4 ---
Operative Note Operative Note Date of surgery: 02/23/2021 Preoperative diagnosis: Right knee medial meniscal tear Postoperative diagnosis: Same Operative procedure: Right knee arthroscopy partial medial and lateral menisce ctomy Surgeon: Irene Assist: Garry hardy Anesthesia: General Estimated blood loss: 2 cc Complications: None Operative indications: Please see my preoperative clinic notes for detailed operative indications and note that we had covered the structure and function of the meniscus the rationale for treating the mechanical symptoms that he has been experiencing with removal of the offending portion of the meniscus. I did specifically note that I cannot undo any type of degenerative change present and any symptoms continuing would have to be treated on a symptomatic basis. Likewise there is a risk of potential infection nerve or blood vessel damage blood clots medical or other anesthetic complications among others. He agrees to proceed with surgical evaluation and treatment Operative text: Patient was identified procedure verified patient placed in supine position on the operating table. After adequate amounts of general anesthesia were administered the right lower extremity was prepped and draped in standard sterile fashion with a thigh tourniquet. After timeout was performed patient procedure identified and verified the left lower extremity was exsanguinated by Esmarch bandage tourniquet inflated to 350 mmHg a lateral portal was established medial portal established using spinal needle localization and the knee joint was systematically examined. No loose bodies were noted in the gutters or suprapatellar pouch. He did have some chondromalacia of the patellofemoral joint not requiring debridement. There was a displaceable tear at the posterior horn and body of the medial meniscus which was trimmed back to stable tissue using arthroscopic punch and shaver and radiusing of the remaining meniscus carried out to avoid any stress risers. 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 ACL and PCL were compromised and absent. He had free edge tearing of the lateral meniscus which was trimmed back to stable tissue using the arthroscopic punch and shaver. The knee joint was again examined to ensure no loose bodies were left behind and knee was drained of arthroscopic fluid portals were infused along with the fat pad with half percent plain Marcaine and portals were closed with nylon suture sterile dressings were then applied patient was returned to recovery room having tolerated procedure well. Toes were noted be warm pink following deflation of the tourniquet. Garry Simone pharmacy technician assistant was present for the procedure assisted in patient positioning prepping draping limb positioning closure and dressings KIT WILLIAMSON MD Feb 23, 2021 18:00
== END 2021-02-23 13:54 | disposition home or self-care (01) ==
LOC: SURG 08:15
PROVIDERS: ATTEND Orthopaedic Surgery
DX: S83.241A Other tear of medial meniscus, current injury, right knee, initial encounter (principal); S83.281A Other tear of lateral meniscus, current injury, right knee, initial encounter; M94.261 Chondromalacia, right knee; I10 Essential (primary) hypertension; K21.9 Gastro-esophageal reflux disease without esophagitis; Z79.899 Other long term (current) drug therapy; Z98.890 Other specified postprocedural states; X58.XXXA Exposure to other specified factors, initial encounter; Y93.89 Activity, other specified; Y92.89 Other specified places as the place of occurrence of the external cause; Y99.8 Other external cause status
CPT/HCPCS: 29880; 71045; 97110; 97116; 97162; A4930; J1100; J2405; J2704; J3010; J3490; A6454; J0330; J0690; J7060

== ENCOUNTER 2021-04-24 00:41 | Emergency (ER) | payer OTHER ==
[~2021-04-24] VITALS: Ht 175.3 cm; Wt 118.0 kg
[~2021-04-24 00:41] MED LIST changes: +HYDR-2765 PO; +HYDR12.575 PO; -HYDROmorphone 2 MG/ML VIAL IVP PRN; -IV RINGERS,LACTATED 1000ML 1,000 ML IV SCH; -MORPHINE SULFATE 2 MG/ML INJ. IVP PRN; -PROCHLORPERAZINE 10 MG/2 ML VIAL. IVP PRN; -fentaNYL PF VIAL 100 MCG/2 ML VIAL IVP PRN
--- NOTE | 2021-04-24 01:01 | PHYS DOC ---
Past Medical History Past Medical History: Hypertension Past Surgical History: No Surgical History Smoking Status: Never Smoker Alcohol Use: None Drug Use: None General Adult EDM: Chief Complaint: SHORTNESS OF BREATH HPI: HPI: Patient is a 56 year [id number]-[id number]-wcm male past medical history hypertension presents with a chief complaint of shortness of breath. Patient states woke up around midnight with a sensation of shortness of breath. Patient states he went to sleep normal state of health. Patient denies any associated chest discomfort just states he feels like he cannot take a deep breath. Patient called 911 and EMS found patient to be 90% on room air. Upon arrival patient was 87% on room air. He is currently on 2l NC with oxygen saturation of 95% Review of Systems: Review of Systems: Constitutional: Denies fever or chills. [] Eyes: Denies change in visual acuity. [] HENT: Denies nasal congestion or sore throat. [] Respiratory: Denies cough positive shortness of breath. [] Cardiovascular: Denies chest pain or edema. [] GI: Denies abdominal pain, nausea, vomiting, bloody stools or diarrhea. [] : Denies dysuria. [] Musculoskeletal: Denies back pain or joint pain. [] Integument: Denies rash. [] Neurologic: Denies headache, focal weakness or sensory changes. [] Endocrine: Denies polyuria or polydipsia. [] Lymphatic: Denies swollen glands. [] Psychiatric: Denies depression or anxiety. [] Heart Score: C/O Chest Pain: N/A Risk Factors: Risk Factors: DM, Current or recent (<one month) smoker, HTN, HLP, family history of CAD, obesity. Risk Scores: Score 0 - 3: 2.5% MACE over next 6 weeks - Discharge Home Score 4 - 6: 20.3% MACE over next 6 weeks - Admit for Clinical Observation Score 7 - 10: 72.7% MACE over next 6 weeks - Early Invasive Strategies Allergies: Allergies: Allergies Coded Allergies Type Severity Reaction Last Updated Verified No Known Drug Allergies 02/23/21 No Physical Exam: PE: Constitutional: Well developed, well nourished, no acute distress, non-toxic appearance. [] HENT: Normocephalic, atraumatic, bilateral external ears normal, oropharynx moist, no oral exudates, nose normal. [] Eyes: PERRLA, EOMI, conjunctiva normal, no discharge. [] Neck: Normal range of motion, no tenderness, supple, no stridor. [] Cardiovascular:Heart rate regular rhythm, no murmur [] Lungs & Thorax: Bilateral breath sounds clear to auscultation [] Abdomen: Bowel sounds normal, soft, no tenderness, no masses, no pulsatile masses. [] Skin: Warm, dry, no erythema, no rash. [] Back: No tenderness, no CVA tenderness. [] Extremities: No tenderness, no cyanosis, no clubbing, ROM intact, no edema. [] Neurologic: Alert and oriented X 3, normal motor function, normal sensory function, no focal deficits noted. [] Psychologic: Affect normal, judgement normal, mood normal. [] EKG: EKG: Performed at 0048 Rate [address] elevation No ST depression No acute HI [] Radiology/Procedures: Radiology/Procedures: [] Impression: TECHNIQUE: AP upright view of the chest FINDINGS: The heart is normal in size. Lungs are hypoexpanded. There is elevation of the right hemidiaphragm. No consolidation, pleural effusion, or pneumothorax. No acute osseous abnormality. IMPRESSION: Hypoexpanded lungs. No acute abnormality. Course & Med Decision Making: Course & Med Decision Making Pertinent Labs and Imaging studies reviewed. (See chart for details) [] Patient was evaluated for chief complaint. Work-up consisted of laboratory analysis radiologic imaging and EKG. Results reviewed and discussed with patient. Chest x-ray without focal infiltrate EKG within normal limits. Patient's troponin negative, D-dimer within normal limits, and BMP within normal limits. Patient received 1 L of IV fluids. Initial and treatment was only 3 L nasal cannula. Patient was observed for greater than 2 hours while work-up was pending. Patient reevaluated at 040 0 hours when I discussed all results with the patient. He states he feels much better he has no complaints. Patient supplemental oxygen was turned off patient was observed oxygen saturation 96-97% on room air. Patient's Covid and influenza negative Unsure as the exact cause of patient's of shortness of breath. At this time I feel the patient is stable for discharge. Patient will be instructed to follow- up with his primary care physician. Desi Disclaimer: Desi Disclaimer: This electronic medical record was generated, in whole or in part, using a voice recognition dictation system. Departure Departure Impression: Primary Impression: Dyspnea Referrals: ANGELICA MANUEL MD (PCP) Patient Instructions: Shortness of Breath ALEX BAR DO Apr 24, 2021 01:01
[2021-04-24 01:43] LABS: INFLUENZA A PATIENT NEGATIVE (NEGATIVE); INFLUENZA B PATIENT NEGATIVE (NEGATIVE)
[2021-04-24 02:21] LABS: CALCIUM 8.6 mg/dL (8.5-10.1); CREATININE 1.2 mg/dL (0.7-1.3); GFR 75.5; POTASSIUM 3.4 mmol/L (3.5-5.1)
[2021-04-24 02:27] LABS: ALBUMIN 3.6 g/dL (3.4-5.0); ALBUMIN/GLOBULIN RATIO 0.9 (1.0-1.7); TOTAL BILIRUBIN 0.2 mg/dL (0.2-1.0); TOTAL PROTEIN 7.4 g/dL (6.4-8.2)
[2021-04-24 03:07] LABS: BASO % 1 % (0-3); EOS # 1.4 x10^3/uL (0.0-0.7); EOS % 17 % (0-3); HEMATOCRIT 43.2 % (39.0-53.0); HEMOGLOBIN 14.3 g/dL (13.0-17.5); LYMPH # 2.5 x10^3/uL (1.0-4.8); LYMPH % 30 % (24-48); MEAN CORPUSCULAR HEMOGLOBIN 30 pg (25-35); MEAN CORPUSCULAR HGB CONC 33 g/dL (31-37); MEAN CORPUSCULAR VOLUME 92 fL (79-100); MONO # 0.6 x10^3/uL (0.0-1.1); MONO % 7 % (0-9); NEUT # 3.7 x10^3/uL (1.8-7.7); NEUT % 45 % (31-73); PLATELET COUNT 144 x10^3/uL (140-400); RED BLOOD COUNT 4.71 x10^6/uL (4.30-5.70); RED CELL DISTRIBUTION WIDTH 13.9 % (11.5-14.5); WHITE BLOOD COUNT 8.1 x10^3/uL (4.0-11.0)
--- NOTE | 2021-04-24 03:18 | EKG ---
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
--- NOTE | 2021-04-24 04:02 | RAD ---
EXAM: XR CHEST 1V 04/24/2021 1:16 AM CLINICAL INDICATION: Shortness of breath COMPARISON: Chest radiograph 02/23/2021 TECHNIQUE: AP upright view of the chest FINDINGS: The heart is normal in size. Lungs are hypoexpanded. There is elevation of the right hemid iaphragm. No consolidation, pleural effusion, or pneumothorax. No acute osseous abnormality. IMPRESSION: Hypoexpanded lungs. No acute abnormality. Electronically signed by: Karishma Barbosa MD (04/24/2021 3:59 AM) [facility]
[2021-04-24 04:16] LABS: % ATYL 2 % (0-0); % EOS 15 % (0-5); % LYMPHS 27 % (24-48); % MONOS 5 % (0-10); % SEGS 51 % (35-66)
[2021-04-24 04:17] LABS: PLT ESTIMATE ADEQUATE (ADEQUATE)
[2021-04-24 04:36] VITALS: BP 168/102
== END 2021-04-24 04:36 | disposition home or self-care (01) ==
LOC: ER 00:41
DX: R06.02 Shortness of breath (principal); Z20.822 Contact with and (suspected) exposure to COVID-19; I10 Essential (primary) hypertension
CPT/HCPCS: 36415; 71045; 80053; 83880; 84484; 85007; 85025; 85379; 87426; 87804; 93005; 99285-25

== ENCOUNTER → 2021-05-07 | Outpatient (CLI) | payer OTHER ==
[2021-04-24 04:36] VITALS: BP 168/102
--- NOTE | 2021-05-08 13:39 | SLEEP ---
DATE OF STUDY: 05/07/2021 SLEEP STUDY ATTENDING PHYSICIAN: Dr. Angelica Manuel. The patient is a 56-year-old who weighs 388 pounds with a BMI of 42. The patient underwent split night study performed at [facility]. During the night study, the patient spent 443 minutes in bed and slept for 344 minutes with a sleep efficiency of 78%. Sleep latency was 6 minutes with a REM latency of 241 minutes. Sleep architecture showed increased stage 1 and stage 2 sleep, absent slow wave and slightly reduced REM sleep, which was 13% of the total sleep time. During the initial diagnostic portion of the study, the patient slept for 136 minutes. During that time, the patient had 6 obstructive apneas, 7 mixed apneas, no central apneas and 39 hypopneas. The patient's AHI was 23 per hour with a supine AHI of 23 per hour. REM sleep was not seen during the diagnostic portion. EKG monitoring revealed a mean heart rate of 71 beats per minute. No sustained arrhythmias observed. Nocturnal oximetry study during the diagnostic portion revealed a mean oxygen saturation of 95% with a lowest of 74%, 6% of time oxygen saturation remained between 80 and 89%. PLMs were seen at index of 22 per hour and 4 per hour caused EEG arousals. The patient met the criteria for CPAP initiation. It was started at 5 cm water and titrated up to 12 cm water. At the final pressure, the patient slept for 60 minutes. The patient had supine as well as REM sleep. The patient's AHI was reduced to 2 per hour and oxygen saturation remained above 88%. The patient is to use medium nasal pillows. IMPRESSION: 1. Moderate obstructive sleep apnea at an AHI of 23 per hour. Absence of REM sleep during the diagnostic portion can underestimate the severity of sleep apnea. 2. Nocturnal hypoxia secondary to obstructive sleep apnea, but resolved with CPAP. 3. Moderate PLMs without any significant EEG arousals. RECOMMENDATIONS: 1. CPAP at 12 cm water completely eliminated the patient's sleep apnea and should be used on a nightly basis. 2. Follow up in 4-6 weeks to assess compliance with CPAP and to document clinical improvement. 3. Weight loss is strongly advised. 4. Avoid SEX WORKER OR ESCORT depressants. 5. Cautioned regarding driving until symptoms of sleep apnea resolve with the use of CPAP. 6. The patient is to use medium size nasal pillows with chin strap. 7. PLMs does not need to be treated unless the patient has symptoms of restless legs during the day. DARY DR: Scotty TID: [id number] CC: ANGELICA MANUEL MD
== END ==
LOC: SLPLAB 19:03
PROVIDERS: ATTEND Family Medicine
DX: G47.33 Obstructive sleep apnea (adult) (pediatric) (principal); R06.00 Dyspnea, unspecified
CPT/HCPCS: 95810

== ENCOUNTER → 2021-06-12 | Outpatient (CLI) | payer OTHER ==
--- NOTE | 2021-06-13 19:27 | RAD ---
MR#: [id number] Date of Study: 06/12/2021 Ordering Physician: MALATHI DAVIS, Referring Physician: MALATHI DAVIS, Tech: Sang Braden MBA, RDMS, RVT, RDCS, RTR APPROVED REPORT Patient Location: OUT-PATIENT Indications Uncontrolled HTN Renal Artery Doppler Right Renal Artery Left Renal Arter y Proximal 94.0/29.0 cm/secProximal 114.0/40.0 cm/sec Mid 83.0/26.0 cm/secMid 123.0/38.0 cm/sec Distal 110.0/30.0 cm/secDistal 64.0/22.0 cm/sec Renal/Aorta Ratio 1.20Renal/Aorta Ratio 1.30 Prox. Resistive Index 0.69Prox. Resistive Index 0.64 Mid Resistive Index 0.69Mid Resistive Index 0.69 Distal Resistive Index 0.72Distal Resistive Index 0.65 Rt. Segmental A. 37.0/12.0 cm/secLt. Segmental A. 55.0/16.0 cm/sec Renal Measurements RightLeft Kidney Sqalqr86.7 cm cmKidney Byhlyw06.7 cm cm Right Additional FindingsLeft Additional Findings Aortic Doppler VelocityWaveform Distal Aorta 93.0 cm/sec Findings Grayscale images of the abdominal aorta, bilateral kidneys and renal arteries were obtained although they were significantly limited due to bowel gas interference and body habitus. Spectral waveforms of the distal abdominal aorta, proximal, mid and distal renal arteries bilaterally are grossly unremarkable. Again the waveforms are limited in quality due to the patient's body habi tus and bowel gas interference. Nonetheless no obvious evidence of significant renal artery stenosis is noted. Normal renal to aorti c ratios. Normal resistive indices. Critical Notification Critical Value: No <Conclusion> 1. No significant renal artery stenosis bilaterally 2. Technically limited study. Signed by : Valentin Barnett, Electronically Approved : 06/13/2021 19:27:22
== END ==
LOC: US 09:56
PROVIDERS: ATTEND Internal Medicine Cardiovascular Disease
DX: I10 Essential (primary) hypertension (principal)
CPT/HCPCS: 93975

== ENCOUNTER → 2021-08-21 | Outpatient (CLI) | payer OTHER ==
--- NOTE | 2021-08-21 12:39 | KCIC ---
XR CHEST 2V INDICATION: Sleep apnea, SOA. . COMPARISON STUDY: 04/24/2021. FINDINGS: Lungs: Low lung volume. No pulmonary mass or consolidation. The tracheobronchial tree and hilar struc tures are normal. Pleura: No pleural effusion or pneumothorax. Heart and Mediastinum: The cardiomediastinal silhouette is normal. Mild tortuosity of the thoracic ao rta. Bones and Soft Tissues: Degenerative changes of the spine. IMPRESSION: Low lung volume. No focal airspace disease. Electronically signed by: Boni Post MD (08/21/2021 12:37 PM) [id number]
== END ==
LOC: KCIC 08:15
PROVIDERS: ATTEND Internal Medicine Pulmonary Disease
DX: Q25.46 Tortuous aortic arch (principal); M47.819 Spondylosis without myelopathy or radiculopathy, site unspecified; G47.30 Sleep apnea, unspecified
CPT/HCPCS: 71046